=== PATIENT | female | born 1975 | race Caucasian/White ===

== ENCOUNTER 2024-07-09 23:57 | Inpatient (IN) | payer BC ==
[2024-07-10] MEDS: SODIUM CHLORIDE 0.9% 1,000 ML IV ONE (01:17)
--- NOTE | 2024-07-10 01:17 | XR ---
EXAM: XR Right Hand Complete, 3 or More Views CLINICAL HISTORY: ITS.REASON XR Reason: dog bite, worsening infection TECHNIQUE: Frontal, lateral and oblique views of the right hand. COMPARISON: No relevant prior studies available. FINDINGS: Bones/joints: Unremarkable. No acute fracture. No dislocation. Soft tissues: Unremarkable. No radiopaque foreign body. IMPRESSION: Normal right hand x-rays.
[2024-07-10] MEDS: HYDROmorphone 0.5 MG/0.5 ML SYRINGE IVP STA (01:18)
[2024-07-10] MEDS: KETOROLAC 15 MG/ML 1 ML VIAL IVP STA (01:20)
[2024-07-10] MEDS: ONDANSETRON 4 MG/2 ML VIAL IVP STA (01:24)
[2024-07-10 01:49] LABS: ALT 36 U/L (4-34); AST 33 U/L (14-36); African American GFR (CKD) >90 (>60 ml/min/1.73 sqM); Alkaline Phosphatase 83 U/L (38-126); Anion Gap 7 mmol/L; Blood Urea Nitrogen 9 mg/dL (7-17); C Reactive Protein 8.9 mg/dL (<1.0); Calcium 9.1 mg/dL (8.4-10.2); Carbon Dioxide 24 mmol/L (22-30); Chloride 106 mmol/L (98-107); Glucose 96 mg/dL (74-99); Non-African American GFR(CKD) >90 (>60 ml/min/1.73 sqM); Sodium 137 mmol/L (137-145); Total Bilirubin 0.4 mg/dL (0.2-1.3)
[2024-07-10 01:51] LABS: Basophils # (A) 0.1 k/uL (0-0.2); Basophils % (A) 0 %; Eosinophils # (A) 0.1 k/uL (0-0.7); Eosinophils % (A) 1 %; HCT 36.7 % (34.0-46.0); HGB 12.5 gm/dL (11.4-16.0); Lymphocytes # (A) 2.5 k/uL (1.0-4.8); Lymphocytes % (A) 19 %; MCH 31.5 pg (25.0-35.0); MCV 92.5 fL (80.0-100.0); Mean Platelet Volume 7.4; Monocytes # (A) 0.7 k/uL (0-1.0); Monocytes % (A) 5 %; Neutrophils # (A) 9.7 k/uL (1.3-7.7); Neutrophils % (A) 73 %; Platelet Count 340 k/uL (150-450); RBC 3.96 m/uL (3.80-5.40); RDW 12.9 % (11.5-15.5); WBC 13.3 k/uL (3.8-10.6)
[2024-07-10] MEDS: AMPICILLIN-SULBACTAM 3 GM in SODIUM CHLORIDE 0.9% 100 ML IVPB STA (02:00)
[2024-07-10] MEDS ORDERED: NALOXONE 0.4 MG/ML 1 ML VIAL IV PRN (02:47)
[2024-07-10] MEDS ORDERED: ACETAMINOPHEN TAB 325 MG TAB PO PRN (02:47)
--- NOTE | 2024-07-10 02:49 | ED ---
General Adult HPI - General Chief complaint: Extremity Injury, Upper Stated complaint: Dog bite- swelling Time Seen by Provider: 07/10/24 00:15 Source: patient Mode of arrival: ambulatory - History of Present Illness Initial comments: 48-year-old female presenting with chief complaint of pain and swelling to the right hand. Back on Saturday the patient was bitten by her dog while she was grooming him at an urgent care, she was given a tetanus shot and placed on Augmentin. Patient now has significant swelling to the dorsal surface of the hand and has limited range of motion to digits 2 through 5. She is having significant pain redness and warmth as well. No fevers. States that she feels that the lymph nodes in her right axilla are swollen - Related Data Allergies Allergy/AdvReac Type Severity Reaction Status Date / Time morphine Allergy Rash/Hives Verified 07/10/24 00:11 Review of Systems ROS Statement: Those systems with pertinent positive or pertinent negative responses have been documented in the HPI. ROS Other: All systems not noted in ROS Statement are negative. Past Medical History Past Medical History: Hyperlipidemia, Hypertension History of Any Multi-Drug Resistant Organisms: None Reported Past Surgical History: Orthopedic Surgery, Tubal Ligation Past Psychological History: No Psychological Hx Reported Smoking Status: Vaper Past Alcohol Use History: Occasional Past Drug Use History: Marijuana General Exam General appearance: alert, in no apparent distress Head exam: Present: atraumatic, normocephalic, normal inspection Eye exam: Present: normal appearance, EOMI Neck exam: Present: normal inspection. Absent: meningismus Respiratory exam: Absent: respiratory distress Cardiovascular Exam: Present: regular rate Right Hand Wrist exam: Present: tenderness, swelling, erythema. Absent: full ROM Neurological exam: Present: alert, oriented X3 Psychiatric exam: Present: normal affect, normal mood Skin exam: Present: erythema Course Vital Signs 07/10/24 07/10/24 07/10/24 00:09 02:05 03:39 Temperature 98.8 F 98.5 F 97.5 F L Pulse Rate 69 69 74 Respiratory 18 17 17 Rate Blood Pressure 143/74 131/79 122/76 O2 Sat by Pulse 100 96 96 Oximetry Medical Decision Making - Medical Decision Making Was pt. sent in by a medical professional or institution (, PA, C S S REPRESENTATIVE, urgent care, hospital, or shelter...) When possible be specific @ -No Did you speak to anyone other than the patient for history (EMS, parent, family, police, friend...)? What history was obtained from this source @ -No Did you review nursing and triage notes (agree or disagree)? Why? @ -I reviewed and agree with nursing and triage notes Were old charts reviewed (outside hosp., previous admission, EMS record, old EKG, old radiological studies, urgent care reports/EKG's, shelter records)? Report findings @ -No old charts were reviewed Differential Diagnosis (chest pain, altered mental status, abdominal pain women, abdominal pain men, vaginal bleeding, weakness, fever, dyspnea, syncope, headache, dizziness, GI bleed, back pain, seizure, CVA, palpatations, mental health, musculoskeletal)? @ -Differential Musculoskeletal Muscular strain, contusion, ligament sprain, fracture, arthritis, septic arthritis, bursitis, cellulitis, muscle spasm, nerve compression, DVT, arterial occlusion, herpes zoster, electrolyte abnormality, tumor.... This is not meant to be in all inclusive list EKG interpreted by me (3pts min.). @ -As above X-rays interpreted by me (1pt min.). @ -X-ray shows no acute osseous process of the hand CT interpreted by me (1pt min.). @ -None done U/S interpreted by me (1pt. min.). @ -None done What testing was considered but not performed or refused? (CT, X-rays, U/S, labs)? Why? @ -None What meds were considered but not given or refused? Why? @ -None Did you discuss the management of the patient with other professionals (professionals i.e. , PA, C S S REPRESENTATIVE, lab, RT, psych nurse, social service assistant, montessori lead teacher, teacher, surveillance officer, ed case manager)? Give summary @ -My attending spoke with the [facility] provider on-call accepts admission Was smoking cessation discussed for >3mins.? @ -No Was critical care preformed (if so, how long)? @ -No Were there social determinants of health that impacted care today? How? (Homelessness, low income, unemployed, alcoholism, drug addiction, transportation, low edu. Level, literacy, decrease access to med. care, halfway, rehab)? @ -No Was there de-escalation of care discussed even if they declined (Discuss DNR or withdrawal of care, Hospice)? DNR status @ -No What co-morbidities impacted this encounter? (DM, HTN, Smoking, COPD, CAD, Cancer, CVA, ARF, Chemo, Hep., AIDS, mental health diagnosis, sleep apnea, morbid obesity)? @ -None Was patient admitted / discharged? Hospital course, mention meds given and route, prescriptions, significant lab abnormalities, going to OR and other pert inent info. @ -48-year-old female presenting chief complaint of increased pain, redness, swelling to the right hand after dog bite on Saturday. Patient was on Augmentin and had her tetanus updated after the incident. White count 13.3. CRP 8.9. X- ray of the hand shows no acute osseous process. Lactic acid is WNL. Patient will be admitted for dog bite cellulitis to the hand that is failed outpatient treatment. She is started on Unasyn after blood cultures are drawn. Consult is placed to surgeon. Patient is agreeable with this plan. I discussed this case with my attending Dr. Kaufman Undiagnosed new problem with uncertain prognosis? @ -No Drug Therapy requiring intensive monitoring for toxicity (Heparin, Nitro, Insulin, Cardizem)? @ -No Were any procedures done? @ -No Diagnosis/symptom? @ -Dog bite cellulitis to the hand Acute, or Chronic, or Acute on Chronic? @ -Acute Uncomplicated (without systemic symptoms) or Complicated (systemic symptoms)? @ -Complicated Side effects of treatment? @ -No Exacerbation, Progression, or Severe Exacerbation? @ -No Poses a threat to life or bodily function? How? (Chest pain, USA, ID, pneumonia, PE, COPD, DKA, ARF, appy, cholecystitis, CVA, Diverticulitis, Homicidal, Suicidal, threat to staff... and all critical care pts) @ -Yes - Lab Data Result diagrams: 07/10/24 01:11 07/10/24 01:11 Lab Results 07/10/24 07/10/24 07/10/24 Range/Units 01:11 01:11 01:11 WBC 13.3 H (3.8-10.6) k/uL RBC 3.96 (3.80-5.40) m/uL Hgb 12.5 (11.4-16.0) gm/dL Hct 36.7 (34.0-46.0) % MCV 92.5 (80.0-100.0) fL MCH 31.5 (25.0-35.0) pg MCHC 34.0 (31.0-37.0) g/dL RDW 12.9 (11.5-15.5) % Plt Count 340 (150-450) k/uL MPV 7.4 Neutrophils % 73 % Lymphocytes % 19 % Monocytes % 5 % Eosinophils % 1 % Basophils % 0 % Neutrophils # 9.7 H (1.3-7.7) k/uL Lymphocytes # 2.5 (1.0-4.8) k/uL Monocytes # 0.7 (0-1.0) k/uL Eosinophils # 0.1 (0-0.7) k/uL Basophils # 0.1 (0-0.2) k/uL Sodium 137 (137-145) mmol/L Potassium 4.0 (3.5-5.1) mmol/L Chloride 106 (98-107) mmol/L Carbon Dioxide 24 (22-30) mmol/L Anion Gap 7 mmol/L BUN 9 (7-17) mg/dL Creatinine 0.69 (0.52-1.04) mg/dL Est GFR (CKD-EPI)AfAm >90 (>60 ml/min/1.73 sqM) Est GFR (CKD-EPI)NonAf >90 (>60 ml/min/1.73 sqM) Glucose 96 (74-99) mg/dL Plasma Lactic Acid Yaakov 0.7 (0.7-2.0) mmol/L Calcium 9.1 (8.4-10.2) mg/dL Total Bilirubin 0.4 (0.2-1.3) mg/dL AST 33 (14-36) U/L ALT 36 H (4-34) U/L Alkaline Phosphatase 83 (38-126) U/L C-Reactive Protein 8.9 H (<1.0) mg/dL Total Protein 7.0 (6.3-8.2) g/dL Albumin 4.0 (3.5-5.0) g/dL Disposition Clinical Impression: Cellulitis of hand Disposition: ADMITTED IP TO THIS [facility] Condition: Serious Time of Disposition: 02:49
[2024-07-10] MEDS: SODIUM CHLORIDE 0.9% 1,000 ML IV SCH (03:05)
[2024-07-10] MEDS: HYDROmorphone 1 MG/ML 1 ML SYRINGE IVP PRN (03:07)
[2024-07-10] MEDS: KETOROLAC 15 MG/ML 1 ML VIAL IVP PRN (04:28)
[2024-07-10 10:13] LABS: Erythrocyte Sedimentation Rate 27 mm/Hr (0-20)
[2024-07-10] MEDS ORDERED: HYDROcodone/APAP 5-325MG 1 EACH TAB PO PRN (14:02)
[2024-07-10] MEDS: HYDROcodone/APAP 5-325MG 1 EACH TAB PO PRN (15:47)
[2024-07-10] MEDS: AMPICILLIN-SULBACTAM 3 GM in SODIUM CHLORIDE 0.9% 100 ML IVPB SCH (15:48)
[2024-07-10] MEDS: HEPARIN SODIUM,PORCINE 5,000 UNIT/ML 1 ML VIAL SQ SCH (17:02)
--- NOTE | 2024-07-10 22:48 | P.HPIM ---
History of Present Illness H&P Date: 07/10/24 Chief Complaint: Dog bite Patient is a 48-year-old female with known history of hypertension, hyperlipidemia, right ankle surgery, history of vaping and occasional marijuana use. Patient presents to ER with complaints of swelling and pain over the right hand. Patient states that she was bitten by her dog on Saturday and went to [place] urgent care in the evening. Patient was given tetanus shot and was sent home on Augmentin. Patient has been taking medications at home for the pain and swelling went up and getting worse with redness increasing up to elbow. Patient also felt her lymph nodes enlarged in the axillary region. Patient otherwise denied any fever or chills. No cough or sputum production. Any recent illnesses. No recent trauma. Laboratory data showed WBC 13.3 hemoglobin 12.5 and platelets 340 sodium 137 potassium 4.0 chloride 106 bicarb is 24 BUN 9 and creatinine 0.69 and blood sugar 96 CRP 8.9. X-ray of the hand showed normal right hand x-rays. Review of Systems Constitutional: Patient denies any fever or chills . No generalized weakness or weight loss. Abdomen: Patient denied nausea vomiting and diarrhea and abdominal pain. Cardiovascular: Patient denies any chest pain or short of breath no palpitations. Respiratory: patient denied any cough or sputum production. No shortness of breath Neurologic: Patient denied any numbness or tingling. no headache. Musculoskeletal: Patient denies any complaints of joint swelling or deformity. Right hand swelling and pain and difficulty moving her fingers Skin: Negative Psychiatric: Negative Endocrine: No heat or cold intolerance. No recent weight gain. Genitourinary: No dysuria or hematuria. All other 14 point ROS negative except the above Past Medical History Past Medical History: Hyperlipidemia, Hypertension History of Any Multi-Drug Resistant Organisms: None Reported Past Surgical History: Orthopedic Surgery, Tubal Ligation Additional Past Surgical History / Comment(s): 11 screws and plate in right ankle due to tib/fib fracture, oral surgery, top plate dentures and bottom metal plates Past Anesthesia/Blood Transfusion Reactions: Previous Problems w/ Anesthesia Additional Past Anesthesia/Blood Transfusion Reaction / Comment(s): anesthesia wore off quickly and woke up during surgery Past Psychological History: No Psychological Hx Reported Smoking Status: Vaper Past Alcohol Use History: Occasional Past Drug Use History: Marijuana Medications and Allergies Home Medications Medication Instructions Recorded Confirmed Type Amoxic-Pot Clav 875-125Mg 1 tab PO BID 07/10/24 07/10/24 History [Augmentin 875-125] DULoxetine HCL [Cymbalta] 20 mg PO DAILY 07/10/24 07/10/24 History HYDROcodone/APAP 5-325MG [[place] 2 tab PO Q4H PRN 07/10/24 07/10/24 History 5-325] Ibuprofen [Motrin] 800 mg PO Q6H PRN 07/10/24 07/10/24 History Losartan [Cozaar] 50 mg PO BID-W/MEALS 07/10/24 07/10/24 History Omeprazole 20 mg PO DAILY 07/10/24 07/10/24 History Rosuvastatin [Crestor] 10 mg PO HS 07/10/24 07/10/24 History carvediloL [Coreg] 3.125 mg PO BID-W/MEALS 07/10/24 07/10/24 History Allergies Allergy/AdvReac Type Severity Reaction Status Date / Time bee venom protein (honey bee) Allergy Anaphylaxis Verified 07/10/24 11:24 morphine Allergy Rash/Hives Verified 07/10/24 11:24 Physical Exam Vitals: Vital Signs Temp Pulse Pulse Resp BP BP Pulse Ox 07/10/24 07:00 97.7 F 73 16 124/74 99 07/10/24 04:30 18 07/10/24 03:52 97.0 F L 60 18 136/53 100 07/10/24 03:39 97.5 F L 74 17 122/76 96 07/10/24 02:05 98.5 F 69 17 131/79 96 07/10/24 00:09 98.8 F 69 18 143/74 100 Intake and Output 07/09/24 07/10/24 07/10/24 22:59 06:59 14:59 Intake Total 240 Balance 240 Intake: Oral 240 Other: Voiding Method Toilet # Voids 1 Weight 77.111 kg PHYSICAL EXAMINATION: Patient is lying in the bed comfortably, no acute distress, awake alert and oriented.. HEENT: Normocephalic. Neck is supple. Pupils reactive. Nostrils clear. Oral cavity is moist. Neck reveals no JVD, carotid bruits, or thyromegaly. CHEST EXAMINATION: Trachea is central. Symmetrical expansion. Lung haji clear to auscultation and percussion. CARDIAC: Normal S1, S2 with no gallops. No murmurs ABDOMEN: Soft. Bowel sounds normal. No organomegaly. No abdominal bruits. Extremities: reveal no edema. No clubbing or cyanosis.Patient has significant swelling over the dorsal surface of the hand with limited range of motion of the digits 2nd-5th tender to touch and warm. Neurologically awake, alert, oriented x3 with well-coordinated movements. No focal deficits noted Skin: No rash or skin lesions. Psychiatric: Coperative. Nonsuicidal Musculoskeletal: No joint swelling or deformity. Normal range of motion. Results CBC & Chem 7: 07/10/24 01:11 07/10/24 01:11 Labs: Abnormal Lab Results - Last 24 Hours (Table) 07/10/24 07/10/24 Range/Units 01:11 01:11 WBC 13.3 H (3.8-10.6) k/uL Neutrophils # 9.7 H (1.3-7.7) k/uL ESR 27 H (0-20) mm/Hr ALT 36 H (4-34) U/L C-Reactive Protein 8.9 H (<1.0) mg/dL Thrombosis Risk Factor Assmnt - Choose All That Apply Any of the Below Risk Factors Present?: Yes Each Factor Represents 1 point: Age 41-60 years, Obesity (BMI >25) Other Risk Factors: No Other congenital or acquired thrombophilia - If yes, enter type in comment: No Thrombosis Risk Factor Assessment Total Risk Factor Score: 2 Thrombosis Risk Factor Assessment Level: Low Risk Assessment and Plan Assessment: Dog bite with cellulitis of the dorsum of the hand extending up to the elbow with decreased range of motion. Failed outpatient antibiotic therapy with Augmentin Hypertension Hyperlipidemia Vaping and occasional marijuana use DVT prophylaxis with heparin subcu GI prophylaxis Pepcid Plan: Patient will be continued on antibiotics on home of Unasyn and follow-up wound culture report. Hand surgery service was consulted. Continue with pain management and home medications and follow-up closely. Time with Patient: Greater than 30
[2024-07-11] MEDS: PANTOPRAZOLE 40 MG TABLET PO SCH (08:54)
[2024-07-11 09:40] LABS: BUN/Creat Ratio 13.29 Ratio (12.00-20.00); Blood Urea Nitrogen 9.3 mg/dL (9.0-27.0); Carbon Dioxide 24.8 mmol/L (21.6-31.8); Chloride 106 mmol/L (96-109); Glucose 93 mg/dL (70-110); Potassium 4.1 mmol/L (3.5-5.5); Sodium 142 mmol/L (135-145)
[2024-07-11 09:42] LABS: Basophils # (A) 0.04 X 10*3/uL (0.00-0.10); Basophils % (A) 0.4 %; Eosinophils # (A) 0.18 X 10*3/uL (0.04-0.35); Eosinophils % (A) 1.9 %; HCT 36.3 % (37.2-46.3); HGB 11.8 g/dL (12.0-15.0); Lymphocytes # (A) 2.35 X 10*3/uL (0.90-5.00); Lymphocytes % (A) 24.6 %; MCH 30.2 pg (27.0-32.0); MCHC 32.5 g/dL (32.0-37.0); MCV 92.8 FL (80.0-97.0); Mean Platelet Volume 9.6 FL (9.5-12.2); Monocytes # (A) 0.69 X 10*3/uL (0.20-1.00); Monocytes % (A) 7.2 %; NRBC Per 100 WBC 0 X 10*3/uL (0.00-0.01); Neutrophils # (A) 6.27 X 10*3/uL (1.80-7.70); Neutrophils % (A) 65.7 %; Platelet Count 327 X 10*3/uL (140-440); RBC 3.91 X 10*6/uL (4.10-5.20); RDW 13.2 % (11.5-14.5); WBC 9.55 X 10*3/uL (4.50-10.00)
[2024-07-11] MEDS: ONDANSETRON 4 MG/2 ML VIAL IVP PRN (12:56)
--- NOTE | 2024-07-11 13:50 | P.CNOR ---
History of Present Illness - HPI Consult date: 07/10/24 Consult reason: other History of present illness: She states that she was Bit by a dog two days ago. She developed Increased pain and swelling at right hand. She went to Urgent care where she was given tetanus and oral antibiotics. It had progressed and was Admitted yesterday through ED. She feels that it is improved today some after one dose of Unasyn. She has No numbness and no fever Review of Systems All systems: negative Constitutional: Denies chills, Denies fever Eyes: denies blurred vision, denies pain Ears, nose, mouth and throat: Denies headache, Denies sore throat Cardiovascular: Denies chest pain, Denies shortness of breath Respiratory: Denies cough Gastrointestinal: Denies abdominal pain, Denies diarrhea, Denies nausea, Denies vomiting Genitourinary: Denies dysuria, Denies hematuria Musculoskeletal: Denies myalgias Integumentary: Denies pruritus, Denies rash Neurological: Denies numbness, Denies weakness Psychiatric: Denies anxiety, Denies depression Endocrine: Denies fatigue, Denies weight change Past Medical History Past Medical History: Hyperlipidemia, Hypertension History of Any Multi-Drug Resistant Organisms: None Reported Past Surgical History: Orthopedic Surgery, Tubal Ligation Additional Past Surgical History / Comment(s): 11 screws and plate in right ankle due to tib/fib fracture, oral surgery, top plate dentures and bottom metal plates Past Anesthesia/Blood Transfusion Reactions: Previous Problems w/ Anesthesia Additional Past Anesthesia/Blood Transfusion Reaction / Comm: anesthesia wore off quickly and woke up during surgery Past Psychological History: No Psychological Hx Reported Smoking Status: Vaper Past Alcohol Use History: Occasional Past Drug Use History: Marijuana Medications and Allergies Home Medications Medication Instructions Recorded Confirmed Type Amoxic-Pot Clav 875-125Mg 1 tab PO BID 07/10/24 07/10/24 History [Augmentin 875-125] DULoxetine HCL [Cymbalta] 20 mg PO DAILY 07/10/24 07/10/24 History HYDROcodone/APAP 5-325MG [[place] 2 tab PO Q4H PRN 07/10/24 07/10/24 History 5-325] Ibuprofen [Motrin] 800 mg PO Q6H PRN 07/10/24 07/10/24 History Losartan [Cozaar] 50 mg PO BID-W/MEALS 07/10/24 07/10/24 History Omeprazole 20 mg PO DAILY 07/10/24 07/10/24 History Rosuvastatin [Crestor] 10 mg PO HS 07/10/24 07/10/24 History carvediloL [Coreg] 3.125 mg PO BID-W/MEALS 07/10/24 07/10/24 History Allergies Allergy/AdvReac Type Severity Reaction Status Date / Time bee venom protein (honey bee) Allergy Anaphylaxis Verified 07/10/24 11:24 morphine Allergy Rash/Hives Verified 07/10/24 11:24 Physical Examination There is diffuse edema to the right hand. There are a few small blisters/puncture wounds on both surfaces of hand and digits. There is Mild erythema about the hand but not progressed proximally. Motor and sensation is intact in all digits and hand. ROM is limited due to swelling and pain. Less than 2 sec cap refill is present Results - Labs Labs: Abnormal Lab Results - Last 24 Hours (Table) 07/10/24 07/10/24 Range/Units 01:11 01:11 WBC 13.3 H (3.8-10.6) k/uL Neutrophils # 9.7 H (1.3-7.7) k/uL ESR 27 H (0-20) mm/Hr ALT 36 H (4-34) U/L C-Reactive Protein 8.9 H (<1.0) mg/dL Microbiology - Last 24 Hours (Table) 07/10/24 04:03 Gram Stain - Preliminary Hand - Right H & H 07/10/24 Range/Units 01:11 Hgb 12.5 (11.4-16.0) gm/dL Hct 36.7 (34.0-46.0) % Result Diagrams: 07/11/24 04:24 07/11/24 04:24 - Diagnostic results Wrist/Hand x-ray: report reviewed, image reviewed Assessment and Plan (1) Cellulitis of hand Narrative/Plan: we will Restart Unasyn. Continue with pain management, elevate hand/extremity, warm soapy soaks 20 mins several times per day. We will Monitor closely. Current Visit: Yes Status: Acute Priority: Medium Code(s): L03.119 - CELLULITIS OF UNSPECIFIED PART OF LIMB SNOMED Code(s): 60280329 (2) Dog bite Current Visit: Yes Status: Acute Priority: Medium Code(s): W54.0XXA - BITTEN BY DOG, INITIAL ENCOUNTER SNOMED Code(s): 691857370 Time with Patient: Less than 30
--- NOTE | 2024-07-11 13:57 | P.PN ---
Subjective Progress Note Date: 07/11/24 Principal diagnosis: Right hand dog bite, cellulitis She is seen at bedside today regarding her right hand. She doesn't feel much improved. She has no new complaints. She denies numbness or fevers. Objective - Vital Signs Vital signs: Vital Signs Temp 97.9 F 07/11/24 07:00 Pulse 67 07/11/24 09:44 Resp 14 07/11/24 09:44 BP 123/69 07/11/24 07:00 Pulse Ox 97 07/11/24 07:00 FiO2 Intake & Output 07/10/24 07/11/24 07/11/24 18:59 06:59 18:59 Intake Total 480 Balance 480 Intake: Oral 480 Other: Voiding Method Toilet Toilet # Voids 2 3 - Exam There is diffuse edema to right hand. No progressive erythema. There is some minimal drainage of a puncture wound at dorsum of right hand. There is no bleeding. Motor and sensation is intact in hand and digits. ROM limited due to pain swelling. less than 2 sec cap refill in all digits. - Constitutional General appearance: Present: no acute distress - Labs CBC & Chem 7: 07/11/24 04:24 07/11/24 04:24 Labs: Abnormal Lab Results - Last 24 Hours (Table) 07/11/24 Range/Units 04:24 RBC 3.91 L (4.10-5.20) X 10*6/uL Hgb 11.8 L (12.0-15.0) g/dL Hct 36.3 L (37.2-46.3) % Microbiology - Last 24 Hours (Table) 07/10/24 00:55 Blood Culture - Preliminary Blood 07/10/24 04:03 Gram Stain - Preliminary Hand - Right Wound Culture - Preliminary Assessment and Plan (1) Cellulitis of hand Narrative/Plan: She is afebrile and WBC is improved. Cultures pending. She will continue Unasyn. Continue with pain management, elevate hand/extremity, warm soapy soaks 20 mins several times per day. She will be NPO after midnight and we will consider [facility] er bedside I and D vs OR if no improvement tomorrow. We will Monitor closely. Current Visit: Yes Status: Acute Priority: Medium Code(s): L03.119 - CELLULITIS OF UNSPECIFIED PART OF LIMB SNOMED Code(s): 42581246 (2) Dog bite Current Visit: Yes Status: Acute Priority: Medium Code(s): W54.0XXA - BITTEN BY DOG, INITIAL ENCOUNTER SNOMED Code(s): 964092045 Time with Patient: Less than 30
--- NOTE | 2024-07-11 14:47 | P.PN ---
Subjective Progress Note Date: 07/11/24 Patient is a 48-year-old female with known history of hypertension, hyperlipidemia, right ankle surgery, history of vaping and occasional marijuana use. Patient presents to ER with complaints of swelling and pain over the right hand. Patient states that she was bitten by her dog on Saturday and went to [facility] urgent care in the evening. Patient was given tetanus shot and was sent home on Augmentin. Patient has been taking medications at home for the pain and swelling went up and getting worse with redness increasing up to elbow. Patient also felt her lymph nodes enlarged in the axillary region. Patient otherwise denied any fever or chills. No cough or sputum production. Any recent illnesses. No recent trauma. Laboratory data showed WBC 13.3 hemoglobin 12.5 and platelets 340 sodium 137 p otassium 4.0 chloride 106 bicarb is 24 BUN 9 and creatinine 0.69 and blood sugar 96 CRP 8.9. X-ray of the hand showed normal right hand x-rays. 07/11. Patient seen and examined. Orthopedic evaluating, recommend creation of IV antibiotic, possible I&D tomorrow if not improvement. Still has swelling of right hand REVIEW OF SYSTEMS: CONSTITUTIONAL: No fever, no malaise,. CARDIOVASCULAR: No chest pain, no palpitations, no syncope. PULMONARY: No shortness of breath, no cough, GASTROINTESTINAL: No diarrhea, no nausea, no vomiting, no abdominal pain. NEUROLOGICAL: No headaches, no weakness, PHYSICAL EXAMINATION: GENERAL: The patient is alert and oriented x3, not in any acute distress. Well developed, well nourished. HEENT: Pupils are round and equally reacting to light. EOMI. No scleral icterus. No conjunctival pallor. Normocephalic, atraumatic. No pharyngeal erythema. No thyromegaly. CARDIOVASCULAR: S1 and S2 present. No murmurs, rubs, or gallops. PULMONARY: Chest is clear to auscultation, no wheezing or crackles. ABDOMEN: Soft, nontender, nondistended, normoactive bowel sounds. No palpable organomegaly. MUSCULOSKELETAL: Right hand swelling, tenderness EXTREMITIES: No cyanosis, clubbing, or pedal edema. NEUROLOGICAL: Gross neurological examination did not reveal any focal deficits. SKIN: No rashes. Assessment and plan Dog bite with cellulitis of the dorsum of the hand extending up to the elbow with decreased range of motion. Failed outpatient antibiotic therapy with Augmentin Hypertension Hyperlipidemia Vaping and occasional marijuana use Monitor vital signs Monitor CBC Monitor CMP Continue wound care Continue IV Unasyn Continue IV fluids Continue pain management ID following Ortho following, planning I&D if no improvement by tomorrow. Labs and medication were reviewed.. Continue same treatment. Continue with symptomatic treatment. Resume home medication. Monitor labs and vitals. DVT and GI prophylaxis. Further recommendations as per clinical course of the patient Dictation was produced using [employer] dictation software. please excuse any grammatical, word or spelling errors. Objective - Vital Signs Vital signs: Vital Signs Temp 98.2 F 07/11/24 14:03 Pulse 63 07/11/24 14:03 Resp 15 07/11/24 14:03 BP 176/78 07/11/24 14:03 Pulse Ox 97 07/11/24 14:03 FiO2 Intake & Output 07/10/24 07/11/24 07/11/24 18:59 06:59 18:59 Intake Total 480 Balance 480 Intake: Oral 480 Other: Voiding Method Toilet Toilet # Voids 2 3 3 - Labs CBC & Chem 7: 07/11/24 04:24 07/11/24 04:24 Labs: Abnormal Lab Results - Last 24 Hours (Table) 07/11/24 Range/Units 04:24 RBC 3.91 L (4.10-5.20) X 10*6/uL Hgb 11.8 L (12.0-15.0) g/dL Hct 36.3 L (37.2-46.3) % Microbiology - Last 24 Hours (Table) 07/10/24 00:55 Blood Culture - Preliminary Blood 07/10/24 04:03 Gram Stain - Preliminary Hand - Right Wound Culture - Preliminary
[2024-07-11] MEDS: IBUPROFEN 400 MG TAB PO PRN (16:45)
[2024-07-11] MEDS: carvediloL 3.125 MG TAB PO SCH (18:03)
[2024-07-11] MEDS: LOSARTAN 50 MG TAB PO SCH (18:03)
[2024-07-11] MEDS: DULoxetine HCL 20 MG CAPSULE.DR PO SCH (18:23)
[2024-07-11] MEDS: ATORVASTATIN 20 MG TAB PO SCH (20:00)
--- NOTE | 2024-07-12 09:39 | P.CONS ---
History of Present Illness - Reason for Consult Consult date: 07/11/24 Right hand dog bite cellulitis Requesting physician: Santiago Cheema - Chief Complaint Right hand swelling and redness x few days - History of Present Illness Patient is a 48-year-old female with a past medical history difficult for hypertension hyperlipidemia apparently the patient was bitten by her pet dog while she was trying to cut her nails it happened on Saturday that is about 4 days before presentation to the hospital patient went to the urgent care the patient was started on Augmentin however the patient now presenting to the ER concerning for increasing swelling and redness on the dorsum aspect of the right hand and did have a limited motion to the right second finger patient complaining of pain describing the pain to be sharp moderate to severe intensity without any radiation with associated swelling and redness and no foul-smelling drainage on presentation to the hospital patient was afebrile and no fever have been called subsequently patient was not tachycardic hypotensive or hypoxic patient did have white count of 13.3 with a left shift creatinine 0.6, Electrolytes have been normal liver enzymes normal blood cultures obtained which are currently pending patient did have a x-ray of the hand did not show any bony abnormality patient was started on Unasyn infectious disease was consulted today for the right hand infected dog bite cellulitis Review of Systems Positive point and negatives has been mentioned in the HPI, complete review of systems was performed and all other systems are negative Past Medical History Past Medical History: Hyperlipidemia, Hypertension History of Any Multi-Drug Resistant Organisms: None Reported Past Surgical History: Orthopedic Surgery, Tubal Ligation Additional Past Surgical History / Comment(s): 11 screws and plate in right ankle due to tib/fib fracture, oral surgery, top plate dentures and bottom metal plates Past Anesthesia/Blood Transfusion Reactions: Previous Problems w/ Anesthesia Additional Past Anesthesia/Blood Transfusion Reaction / Comm: anesthesia wore off quickly and woke up during surgery Past Psychological History: No Psychological Hx Reported Smoking Status: Vaper Past Alcohol Use History: Occasional Past Drug Use History: Marijuana Medications and Allergies Home Medications Medication Instructions Recorded Confirmed Type Amoxic-Pot Clav 875-125Mg 1 tab PO BID 07/10/24 07/10/24 History [Augmentin 875-125] DULoxetine HCL [Cymbalta] 20 mg PO DAILY 07/10/24 07/10/24 History HYDROcodone/APAP 5-325MG [[place] 2 tab PO Q4H PRN 07/10/24 07/10/24 History 5-325] Ibuprofen [Motrin] 800 mg PO Q6H PRN 07/10/24 07/10/24 History Losartan [Cozaar] 50 mg PO BID-W/MEALS 07/10/24 07/10/24 History Omeprazole 20 mg PO DAILY 07/10/24 07/10/24 History Rosuvastatin [Crestor] 10 mg PO HS 07/10/24 07/10/24 History carvediloL [Coreg] 3.125 mg PO BID-W/MEALS 07/10/24 07/10/24 History Allergies Allergy/AdvReac Type Severity Reaction Status Date / Time bee venom protein (honey bee) Allergy Anaphylaxis Verified 07/10/24 11:24 morphine Allergy Rash/Hives Verified 07/10/24 11:24 Physical Exam Vitals: Vital Signs Temp Pulse Resp BP Pulse Ox 07/11/24 09:44 67 14 07/11/24 07:00 97.9 F 67 14 123/69 97 07/11/24 02:00 98.1 F 60 16 135/79 98 07/10/24 20:00 98.5 F 61 16 130/53 97 07/10/24 14:13 98.4 F 69 16 132/80 98 Intake and Output 07/10/24 07/11/24 07/11/24 22:59 06:59 14:59 Intake Total 480 Balance 480 Intake: Oral 480 Other: Voiding Method Toilet Toilet Toilet # Voids 1 3 GENERAL DESCRIPTION: Middle-aged female lying in bed, no distress. No tachypnea or accessory muscle of respiration use. HEENT: Shows Pallor , no scleral icterus. Oral mucous membrane is dry. No pharyngeal erythema or thrush NECK: Trachea central, no thyromegaly. LUNGS: Unlabored breathing. Clear to auscultation anteriorly. No wheeze or crac kle. HEART: S1, S2, regular rate and rhythm. No loud murmur ABDOMEN: Soft, no tenderness , guarding or rigidity, no organomegaly EXTREMITIES: Right hand dorsum did have diffuse swelling and redness which is warm and tender to touch SKIN: No rash, no masses palpable. NEUROLOGICAL: The patient is awake, alert, oriented x3, mood and affect normal. Results CBC & Chem 7: 07/11/24 04:24 07/11/24 04:24 Labs: Abnormal Lab Results - Last 24 Hours (Table) 07/11/24 Range/Units 04:24 RBC 3.91 L (4.10-5.20) X 10*6/uL Hgb 11.8 L (12.0-15.0) g/dL Hct 36.3 L (37.2-46.3) % Microbiology - Last 24 Hours (Table) 07/10/24 04:03 Gram Stain - Preliminary Hand - Right Wound Culture - Preliminary Assessment and Plan (1) Cellulitis of hand Current Visit: Yes Status: Acute Priority: Medium Code(s): L03.119 - CELLULITIS OF UNSPECIFIED PART OF LIMB SNOMED Code(s): 79321285 (2) Dog bite Current Visit: Yes Status: Acute Priority: Medium Code(s): W54.0XXA - BITTEN BY DOG, INITIAL ENCOUNTER SNOMED Code(s): 237078965 (3) Failure of outpatient treatment Current Visit: Yes Status: Acute Code(s): Z78.9 - OTHER SPECIFIED HEALTH STATUS SNOMED Code(s): 683780198 Plan: 1patient with right hand pain swelling redness started after the dog bite failing outpatient oral Augmentin therapy likely from the burden of disease and will need to cover for the polymicrobial oral glendy of the dog x-ray did not show any bony changes. 2Unasyn 3 g every 6 hours should provide adequate antibiotic coverage. 3patient advised to keep the hand elevated and ice it that would cut down on inflammation. Multiple questions concerns were answered. We will follow on clinical condition and cultures to further adjust medication if needed Thank you for this consultation we will follow the patient along with you Dictation was produced using [employer] dictation software. please excuse any grammatical, word or spelling errors. Time with Patient: Greater than 30
--- NOTE | 2024-07-12 13:18 | P.PN ---
Subjective Progress Note Date: 07/12/24 Patient is a 48-year-old female with known history of hypertension, hyperlipidemia, right ankle surgery, history of vaping and occasional marijuana use. Patient presents to ER with complaints of swelling and pain over the right hand. Patient states that she was bitten by her dog on Saturday and went to [facility] in the evening. Patient was given tetanus shot and was sent home on Augmentin. Patient has been taking medications at home for the pain and swelling went up and getting worse with redness increasing up to elbow. Patient also felt her lymph nodes enlarged in the axillary region. Patient otherwise denied any fever or chills. No cough or sputum production. Any recent illnesses. No recent trauma. Laboratory data showed WBC 13.3 hemoglobin 12.5 and platelets 340 sodium 137 p otassium 4.0 chloride 106 bicarb is 24 BUN 9 and creatinine 0.69 and blood sugar 96 CRP 8.9. X-ray of the hand showed normal right hand x-rays. 07/11. Patient seen and examined. Orthopedic evaluating, recommend creation of IV antibiotic, possible I&D tomorrow if not improvement. Still has swelling of right hand 07/12. Patient seen and examined. States right hand swelling has slightly improved compared to yesterday. Less painful compared to yesterday. REVIEW OF SYSTEMS: CONSTITUTIONAL: No fever, no malaise,. CARDIOVASCULAR: No chest pain, no palpitations, no syncope. PULMONARY: No shortness of breath, no cough, GASTROINTESTINAL: No diarrhea, no nausea, no vomiting, no abdominal pain. NEUROLOGICAL: No headaches, no weakness, PHYSICAL EXAMINATION: GENERAL: The patient is alert and oriented x3, not in any acute distress. Well developed, well nourished. HEENT: Pupils are round and equally reacting to light. EOMI. No scleral icterus. No conjunctival pallor. Normocephalic, atraumatic. No pharyngeal erythema. No thyromegaly. CARDIOVASCULAR: S1 and S2 present. No murmurs, rubs, or gallops. PULMONARY: Chest is clear to auscultation, no wheezing or crackles. ABDOMEN: Soft, nontender, nondistended, normoactive bowel sounds. No palpable organomegaly. MUSCULOSKELETAL: Right hand swelling, tenderness improved EXTREMITIES: No cyanosis, clubbing, or pedal edema. NEUROLOGICAL: Gross neurological examination did not reveal any focal deficits. SKIN: No rashes. Assessment and plan Dog bite with cellulitis of the dorsum of the hand extending up to the elbow with decreased range of motion. Failed outpatient antibiotic therapy with Augmentin Hypertension Hyperlipidemia Vaping and occasional marijuana use Monitor vital signs Monitor CBC Monitor CMP Continue wound care Continue IV Unasyn Continue IV fluids Continue pain management ID following Ortho following Labs and medication were reviewed.. Continue same treatment. Continue with symptomatic treatment. Resume home medication. Monitor labs and vitals. DVT and GI prophylaxis. Further recommendations as per clinical course of the patient Dictation was produced using [employer] dictation software. please excuse any grammatical, word or spelling errors. Objective - Vital Signs Vital signs: Vital Signs Temp 98.3 F 07/12/24 07:00 Pulse 78 07/12/24 07:00 Resp 16 07/12/24 08:00 BP 124/76 07/12/24 07:00 Pulse Ox 96 07/12/24 07:00 FiO2 Intake & Output 07/11/24 07/12/24 07/12/24 18:59 06:59 18:59 Other: Voiding Method Toilet Toilet Toilet # Voids 3 2 - Labs CBC & Chem 7: 07/11/24 04:24 07/11/24 04:24 Labs: Microbiology - Last 24 Hours (Table) 07/10/24 00:55 Blood Culture - Preliminary Blood 07/10/24 04:03 Gram Stain - Final Hand - Right Wound Culture - Final
[2024-07-12] MEDS ORDERED: ONDANSETRON 4 MG/2 ML VIAL IVP PRN (13:40)
--- NOTE | 2024-07-12 13:54 | P.PN ---
Subjective Progress Note Date: 07/12/24 Principal diagnosis: Reason for follow-up is right hand dog bite cellulitis Patient is a 48-year-old female with a past medical history difficult for hypertension hyperlipidemia apparently the patient was bitten by her pet dog while she was trying to cut her nails subsequently presented to hospital with worsening swelling redness to the dorsum of the right hand concerning for dog bite cellulitis. On today's evaluation that is 07/12/2024, Patient is afebrile patient is currently on room air and denies having any shortness of breath, the patient denies any chest pain or cough, the patient denies any nausea vomiting did not have any abdominal pain and no diarrhea, the patient right hand swelling has slightly decreased has been complaining of mostly headache today. No new lab has been obtained today cultures are currently pending Objective - Vital Signs Vital signs: Vital Signs Temp 98.3 F 07/12/24 07:00 Pulse 78 07/12/24 07:00 Resp 16 07/12/24 08:00 BP 124/76 07/12/24 07:00 Pulse Ox 96 07/12/24 07:00 FiO2 Intake & Output 07/11/24 07/12/24 07/12/24 18:59 06:59 18:59 Other: Voiding Method Toilet Toilet Toilet # Voids 3 2 - Exam GENERAL DESCRIPTION: Middle-age female lying in bed in no distress RESPIRATORY SYSTEM: Unlabored breathing , decreased breath sounds at bases HEART: S1 S2 regular rate and rhythm , ABDOMEN: Soft , no tenderness EXTREMITIES: Right hand dorsum swelling redness slightly decreased - Labs CBC & Chem 7: 07/11/24 04:24 07/11/24 04:24 Labs: Microbiology - Last 24 Hours (Table) 07/10/24 00:55 Blood Culture - Preliminary Blood 07/10/24 04:03 Gram Stain - Final Hand - Right Wound Culture - Final Assessment and Plan (1) Cellulitis of hand Current Visit: Yes Status: Acute Priority: Medium Code(s): L03.119 - CELLULITIS OF UNSPECIFIED PART OF LIMB SNOMED Code(s): 75600784 (2) Dog bite Current Visit: Yes Status: Acute Priority: Medium Code(s): W54.0XXA - BITTEN BY DOG, INITIAL ENCOUNTER SNOMED Code(s): 443202705 (3) Failure of outpatient treatment Current Visit: Yes Status: Acute Code(s): Z78.9 - OTHER SPECIFIED HEALTH STATUS SNOMED Code(s): 917657409 Plan: 1patient with right hand pain swelling redness started after the dog bite failing outpatient oral Augmentin therapy likely from the burden of disease and will need to cover for the polymicrobial oral glendy of the dog x-ray did not show any bony changes. 2patient did have a some improvement to the right hand swelling and redness 3plan is to treat with IV Unasyn further 24 to 48 hours before transition to oral Dictation was produced using [employer] dictation software. please excuse any grammatical, word or spelling errors. Time with Patient: Less than 30
--- NOTE | 2024-07-12 14:29 | P.PN ---
Subjective Progress Note Date: 07/12/24 Principal diagnosis: Right hand dog bite, cellulitis She is seen at bedside today regarding her right hand. She feels improved today with swelling, redness and pain. She has no new complaints. She denies numbness or fevers. Objective - Vital Signs Vital signs: Vital Signs Temp 98.3 F 07/12/24 07:00 Pulse 78 07/12/24 07:00 Resp 16 07/12/24 08:00 BP 124/76 07/12/24 07:00 Pulse Ox 96 07/12/24 07:00 FiO2 Intake & Output 07/11/24 07/12/24 07/12/24 18:59 06:59 18:59 Intake Total 118 Balance 118 Intake: Oral 118 Other: Voiding Method Toilet Toilet Toilet # Voids 3 2 - Exam There is improved erythema and edema to right hand. No progressive erythema. Mild tenderness. Not hot. There is some minimal drainage of a puncture wound at dorsum of right hand. There is no bleeding. Motor and sensation is intact in hand and digits. ROM limited due to pain swelling but improved. less than 2 sec cap refill in all digits. - Constitutional General appearance: Present: no acute distress - Labs CBC & Chem 7: 07/11/24 04:24 07/11/24 04:24 Labs: Microbiology - Last 24 Hours (Table) 07/10/24 04:03 Anaerobic Culture - Preliminary Hand - Right 07/10/24 00:55 Blood Culture - Preliminary Blood 07/10/24 04:03 Gram Stain - Final Hand - Right Wound Culture - Final Assessment and Plan (1) Cellulitis of hand Narrative/Plan: She is afebrile and WBC is improved. Cultures negative thus far. She will continue Unasyn. Continue with pain management, elevate hand/extremity, warm soapy soaks 20 mins several times per day. She is improving but will be NPO after midnight again should intervention be needed tomorrow We will Monitor closely. Current Visit: Yes Status: Acute Priority: Medium Code(s): L03.119 - CELLULITIS OF UNSPECIFIED PART OF LIMB SNOMED Code(s): 97074617 (2) Dog bite Current Visit: Yes Status: Acute Priority: Medium Code(s): W54.0XXA - BITTEN BY DOG, INITIAL ENCOUNTER SNOMED Code(s): 987692113
[2024-07-12] MEDS: IBUPROFEN 600 MG TAB PO PRN (17:51)
[2024-07-13 05:42] LABS: Basophils % (A) 1 %; Eosinophils # (A) 0.2 k/uL (0-0.7); Eosinophils % (A) 3 %; HCT 35.7 % (34.0-46.0); HGB 11.5 gm/dL (11.4-16.0); Hypochromasia Slight; Lymphocytes # (A) 1.6 k/uL (1.0-4.8); Lymphocytes % (A) 23 %; MCH 30.7 pg (25.0-35.0); MCHC 32.3 g/dL (31.0-37.0); MCV 95.1 fL (80.0-100.0); Mean Platelet Volume 6.8; Monocytes # (A) 0.4 k/uL (0-1.0); Monocytes % (A) 6 %; Neutrophils # (A) 4.5 k/uL (1.3-7.7); Neutrophils % (A) 64 %; Platelet Count 333 k/uL (150-450); RBC 3.75 m/uL (3.80-5.40); RDW 12.7 % (11.5-15.5); WBC 6.9 k/uL (3.8-10.6)
[2024-07-13 05:49] LABS: ALT 26 U/L (4-34); AST 24 U/L (14-36); African American GFR (CKD) >90 (>60 ml/min/1.73 sqM); Albumin 3.2 g/dL (3.5-5.0); Albumin/Globulin Ratio 1.2; Alkaline Phosphatase 62 U/L (38-126); Anion Gap 9 mmol/L; Blood Urea Nitrogen 7 mg/dL (7-17); Calcium 8.8 mg/dL (8.4-10.2); Carbon Dioxide 22 mmol/L (22-30); Chloride 110 mmol/L (98-107); Globulin 2.7 g/dL; Glucose 97 mg/dL (74-99); Non-African American GFR(CKD) >90 (>60 ml/min/1.73 sqM); Potassium 3.9 mmol/L (3.5-5.1); Sodium 141 mmol/L (137-145); Total Bilirubin 0.2 mg/dL (0.2-1.3); Total Protein 5.9 g/dL (6.3-8.2)
--- NOTE | 2024-07-13 13:38 | XR ---
EXAMINATION TYPE: XR hand limited RT DATE OF EXAM: 07/13/2024 1:06 PM COMPARISON: [id number] CLINICAL INDICATION: Female, 48 years old with history of right hand pain, recent dog bite, pain TECHNIQUE: XR hand limited RT 2views were obtained. FINDINGS/IMPRESSION: There is soft tissue swelling involving the third digit. No evidence for radiopa que foreign body. No evidence for fracture. [facility], , 07/13/2024 1:36 PM
[2024-07-13] MEDS: KETOROLAC 15 MG/ML 1 ML VIAL IVP SCH (13:56)
--- NOTE | 2024-07-13 14:57 | P.PN ---
Subjective Progress Note Date: 07/13/24 Principal diagnosis: Right hand dog bite, cellulitis She is seen at bedside today regarding her right hand. She feels improved today with swelling, redness and pain. She has pain mostly at the 3rd digits.She has no new complaints. She denies numbness or fevers. She has been doing soaks and receiving IV antibiotics. Objective - Vital Signs Vital signs: Vital Signs Temp 98.5 F 07/13/24 07:00 Pulse 57 L 07/13/24 07:00 Resp 16 07/13/24 07:00 BP 149/78 07/13/24 07:00 Pulse Ox 100 07/13/24 07:00 FiO2 Intake & Output 07/12/24 07/13/24 07/13/24 18:59 06:59 18:59 Intake Total 456 Balance 456 Intake: Oral 456 Other: Voiding Method Toilet Toilet # Voids 3 - Exam There continues to be improved erythema and edema to right hand. No progressive erythema. Mild tenderness. Not hot. There is no drainage of a puncture wound at dorsum of right hand. There is no bleeding. Motor and sensation is intact in hand and digits. ROM limited due to pain swelling but continues to improve. less than 2 sec cap refill in all digits. - Constitutional General appearance: Present: no acute distress - Labs CBC & Chem 7: 07/13/24 05:01 07/13/24 05:01 Labs: Abnormal Lab Results - Last 24 Hours (Table) 07/13/24 07/13/24 Range/Units 05:01 05:01 RBC 3.75 L (3.80-5.40) m/uL Chloride 110 H (98-107) mmol/L Total Protein 5.9 L (6.3-8.2) g/dL Albumin 3.2 L (3.5-5.0) g/dL Microbiology - Last 24 Hours (Table) 07/10/24 00:55 Blood Culture - Preliminary Blood 07/10/24 04:03 Anaerobic Culture - Preliminary Hand - Right Assessment and Plan (1) Cellulitis of hand Narrative/Plan: She continues to improve. She is afebrile and WBC is improved. Cultures negative thus far. She will continue Unasyn. Continue with pain management, elevate hand/extremity, warm soapy soaks 20 mins several times per day. Will add corticosteroids for tenosynovitis. We will Monitor closely. Current Visit: Yes Status: Acute Priority: Medium Code(s): L03.119 - CELLULITIS OF UNSPECIFIED PART OF LIMB SNOMED Code(s): 84941263 (2) Dog bite Current Visit: Yes Status: Acute Priority: Medium Code(s): W54.0XXA - BITTEN BY DOG, INITIAL ENCOUNTER SNOMED Code(s): 276850484 Time with Patient: Less than 30
--- NOTE | 2024-07-13 15:01 | P.PN ---
Subjective Progress Note Date: 07/13/24 Patient is a 48-year-old female with known history of hypertension, hyperlipidemia, right ankle surgery, history of vaping and occasional marijuana use. Patient presents to ER with complaints of swelling and pain over the right hand. Patient states that she was bitten by her dog on Saturday and went to [place] urgent care in the evening. Patient was given tetanus shot and was sent home on Augmentin. Patient has been taking medications at home for the pain and swelling went up and getting worse with redness increasing up to elbow. Patient also felt her lymph nodes enlarged in the axillary region. Patient otherwise denied any fever or chills. No cough or sputum production. Any recent illnesses. No recent trauma. Laboratory data showed WBC 13.3 hemoglobin 12.5 and platelets 340 sodium 137 potassium 4.0 chloride 106 bicarb is 24 BUN 9 and creatinine 0.69 and blood sugar 96 CRP 8.9. X-ray of the hand showed normal right hand x-rays. 07/11. Patient seen and examined. Orthopedic evaluating, recommend creation of IV antibiotic, possible I&D tomorrow if not improvement. Still has swelling of right hand 07/12. Patient seen and examined. States right hand swelling has slightly impro kassie compared to yesterday. Less painful compared to yesterday. 07/13/2024 Patient is seen and evaluated in follow-up today with orthopedics along with infectious disease following. Patient is maintained on Unasyn and will continue and cultures thus far are negative. Patient swelling has gone down although patient continues to report significant pain in that right middle finger and unable to bend. Will obtain repeat x-ray as the swelling has gone down somewhat to further evaluate if there are any fractures. Patient is afebrile and white count has normalized and patient reports some improvement. Patient is continuing with soaks 3 times daily with cleansing along with elevating the right upper extremity while at rest. Will continue with current pain regimen and follow-up on repeat labs. Orthopedics evaluating for possible need for I&D. REVIEW OF SYSTEMS: CONSTITUTIONAL: No fever, no malaise,. CARDIOVASCULAR: No chest pain, no palpitations, no syncope. PULMONARY: No shortness of breath, no cough, GASTROINTESTINAL: No diarrhea, no nausea, no vomiting, no abdominal pain. NEUROLOGICAL: No headaches, no weakness, reporting continued right hand pain and swelling with inability to bend of the right middle finger PHYSICAL EXAMINATION: GENERAL: The patient is alert and oriented x3, not in any acute distress. Well developed, well nourished. HEENT: Pupils are round and equally reacting to light. EOMI. No scleral icterus. No conjunctival pallor. Normocephalic, atraumatic. No pharyngeal erythema. No thyromegaly. CARDIOVASCULAR: S1 and S2 present. No murmurs, rubs, or gallops. PULMONARY: Chest is clear to auscultation, no wheezing or crackles. ABDOMEN: Soft, nontender, nondistended, normoactive bowel sounds. No palpable organomegaly. MUSCULOSKELETAL: Right hand swelling, tenderness improved, unable to completely bend right middle finger due to swelling and pain EXTREMITIES: No cyanosis, clubbing, or pedal edema. NEUROLOGICAL: Gross neurological examination did not reveal any focal deficits. SKIN: No rashes. Assessment: Dog bite with cellulitis of the dorsum of the hand extending up to the elbow with decreased range of motion. Failed outpatient antibiotic therapy with Augmentin Hypertension history Hyperlipidemia history Vaping and occasional marijuana use GI prophylaxis DVT prophylaxis Full code Plan: Patient being followed by infectious disease maintained on IV Unasyn and will continue. Cultures thus far are negative Orthopedics evaluating the patient for the need for possible I&D or irrigation of the area as patient continues to have swelling although significantly improved. Patient is unable to bend that right middle finger and repeat hand x- ray showing no acute fractures although continued soft tissue swelling Continue with Hibiclens soaks per orthopedics and elevating right upper extremity while at rest Patient reporting persistent diarrhea and will obtain a C. difficile, unlikely although just want to make sure it is negative as patient has recently been on 2 courses of antibiotics. If negative will add Imodium as needed for diarrhea Encouraged increase activity as tolerated Monitor for any further fevers and will follow-up on repeat labs to monitor white count Overall prognosis guarded at this time The impression and plan of care has been dictated by Margo Diaz, Nurse Practitioner as directed. Dr. Deni MD I have performed a history and examination and MDM of this patient, discussed the same with the dictator, and agree with the dictator's assessment and plan as written ,documented as a scribe. Based on total visit time, I have performed more than 50% of the visit. Objective - Vital Signs Vital signs: Vital Signs Temp 98.5 F 07/13/24 07:00 Pulse 57 L 07/13/24 07:00 Resp 16 07/13/24 07:00 BP 149/78 07/13/24 07:00 Pulse Ox 100 07/13/24 07:00 FiO2 Intake & Output 07/12/24 07/13/24 07/13/24 18:59 06:59 18:59 Intake Total 456 Balance 456 Intake: Oral 456 Other: Voiding Method Toilet # Voids 3 - Labs CBC & Chem 7: 07/13/24 05:01 07/13/24 05:01 Labs: Abnormal Lab Results - Last 24 Hours (Table) 07/13/24 07/13/24 Range/Units 05:01 05:01 RBC 3.75 L (3.80-5.40) m/uL Chloride 110 H (98-107) mmol/L Total Protein 5.9 L (6.3-8.2) g/dL Albumin 3.2 L (3.5-5.0) g/dL Microbiology - Last 24 Hours (Table) 07/10/24 04:03 Anaerobic Culture - Preliminary Hand - Right 07/10/24 00:55 Blood Culture - Preliminary Blood 07/10/24 04:03 Gram Stain - Final Hand - Right Wound Culture - Final
[2024-07-13] MEDS: methylPREDNISolone SOD SUCCIN 250 MG in SODIUM CHLORIDE 0.9% 100 ML IVPB SCH (16:36)
--- NOTE | 2024-07-14 07:58 | P.PN ---
Subjective Progress Note Date: 07/13/24 Principal diagnosis: Reason for follow-up is right hand dog bite cellulitis Patient is a 48-year-old female with a past medical history difficult for hypertension hyperlipidemia apparently the patient was bitten by her pet dog while she was trying to cut her nails subsequently presented to hospital with worsening swelling redness to the dorsum of the right hand concerning for dog bite cellulitis. On today's evaluation that is 07/13/2024, patient has been afebrile, patient is breathing comfortably and is currently on room air, patient denies having any significant cough no chest pain, patient denies nausea vomiting or diarrhea and no abdominal pain patient right hand swelling redness slightly decreased still having difficulty moving the right index finger. Patient white count 6.9 creatinine 0.70 blood and local cultures so far negative Objective - Vital Signs Vital signs: Vital Signs Temp 98.5 F 07/13/24 07:00 Pulse 57 L 07/13/24 07:00 Resp 16 07/13/24 07:00 BP 149/78 07/13/24 07:00 Pulse Ox 100 07/13/24 07:00 FiO2 Intake & Output 07/12/24 07/13/24 07/13/24 18:59 06:59 18:59 Intake Total 456 Balance 456 Intake: Oral 456 Other: Voiding Method Toilet Toilet # Voids 3 - Exam GENERAL DESCRIPTION: Middle-age female lying in bed in no distress RESPIRATORY SYSTEM: Unlabored breathing , decreased breath sounds at bases HEART: S1 S2 regular rate and rhythm , ABDOMEN: Soft , no tenderness EXTREMITIES: Right hand dorsum swelling redness slightly decreased - Labs CBC & Chem 7: 07/13/24 05:01 07/13/24 05:01 Labs: Abnormal Lab Results - Last 24 Hours (Table) 07/13/24 07/13/24 Range/Units 05:01 05:01 RBC 3.75 L (3.80-5.40) m/uL Chloride 110 H (98-107) mmol/L Total Protein 5.9 L (6.3-8.2) g/dL Albumin 3.2 L (3.5-5.0) g/dL Microbiology - Last 24 Hours (Table) 07/10/24 04:03 Anaerobic Culture - Preliminary Hand - Right 07/10/24 00:55 Blood Culture - Preliminary Blood 07/10/24 04:03 Gram Stain - Final Hand - Right Wound Culture - Final Assessment and Plan (1) Cellulitis of hand Current Visit: Yes Status: Acute Priority: Medium Code(s): L03.119 - CELLULITIS OF UNSPECIFIED PART OF LIMB SNOMED Code(s): 83755004 (2) Dog bite Current Visit: Yes Status: Acute Priority: Medium Code(s): W54.0XXA - BITTEN BY DOG, INITIAL ENCOUNTER SNOMED Code(s): 689000582 (3) Failure of outpatient treatment Current Visit: Yes Status: Acute Code(s): Z78.9 - OTHER SPECIFIED HEALTH STATUS SNOMED Code(s): 488575109 Plan: 1patient with right hand pain swelling redness started after the dog bite failing outpatient oral Augmentin therapy likely from the burden of disease and will need to cover for the polymicrobial oral glendy of the dog x-ray did not show any bony changes. 2patient remains to be afebrile white count has normalized swelling to the right hand dorsum slightly decreased no drainage 3patient will be treated with Unasyn 3 g every 6 hours while inpatient await further evaluation as or as the decreased mobility of the right index finger to make sure no evidence of any tenosynovitis or need for surgical exploration Dictation was produced using [employer] dictation software. please excuse any grammatical, word or spelling errors. Time with Patient: Less than 30
[2024-07-14 08:21] LABS: HCT 34.4 % (37.2-46.3); HGB 11.5 g/dL (12.0-15.0); MCH 30.3 pg (27.0-32.0); MCHC 33.4 g/dL (32.0-37.0); MCV 90.5 FL (80.0-97.0); Mean Platelet Volume 9.7 FL (9.5-12.2); NRBC Per 100 WBC 0 X 10*3/uL (0.00-0.01); Platelet Count 355 X 10*3/uL (140-440); RDW 12.6 % (11.5-14.5)
[2024-07-14 08:59] LABS: BUN/Creat Ratio 13.67 Ratio (12.00-20.00); Blood Urea Nitrogen 8.2 mg/dL (9.0-27.0); Calcium 9.2 mg/dL (8.7-10.3); Chloride 103 mmol/L (96-109); Glucose 134 mg/dL (70-110); Magnesium 1.9 mg/dL (1.5-2.4); Potassium 3.7 mmol/L (3.5-5.5); Sodium 140 mmol/L (135-145)
[2024-07-14 11:07] LABS: Basophils # (A) 0.01 X 10*3/uL (0.00-0.10); Basophils % (A) 0.1 %; Eosinophils # (A) 0 X 10*3/uL (0.04-0.35); Eosinophils % (A) 0 %; Lymphocytes # (A) 0.92 X 10*3/uL (0.90-5.00); Lymphocytes % (A) 13.1 %; Monocytes # (A) 0.06 X 10*3/uL (0.20-1.00); Monocytes % (A) 0.9 %; Neutrophils # (A) 5.97 X 10*3/uL (1.80-7.70); Neutrophils % (A) 85.3 %
[2024-07-14] MEDS: LOPERAMIDE 2 MG CAP PO PRN (11:29)
[2024-07-14 13:17] VITALS: BP 171/75; PULSE 57; RESP 17; TEMP 97.5
--- NOTE | 2024-07-14 13:56 | P.PN ---
Subjective Progress Note Date: 07/14/24 Principal diagnosis: Right hand dog bite, cellulitis She is seen at bedside today regarding her right hand. She feels that she has significantly improved overall with swelling, redness and pain. The pain and swelling at the 3rd digit has improved .She has no new complaints. She denies numbness or fevers. She has been doing soaks and receiving IV antibiotics. Objective - Vital Signs Vital signs: Vital Signs Temp 97.5 F L 07/14/24 13:16 Pulse 57 L 07/14/24 13:16 Resp 17 07/14/24 13:16 BP 171/75 07/14/24 13:16 Pulse Ox 95 07/14/24 13:16 FiO2 Intake & Output 07/13/24 07/14/24 07/14/24 18:59 06:59 18:59 Intake Total 118 118 Balance 118 118 Intake: Oral 118 118 Other: Voiding Method Toilet # Voids 3 - Exam There continues to be improved erythema and edema to right hand and digits. No progressive erythema. Mild tenderness. Not hot. There is no drainage of a puncture wound at dorsum of right hand. There is no bleeding. Motor and sensation is intact in hand and digits. ROM of all digits improved. less than 2 sec cap refill in all digits. - Labs CBC & Chem 7: 07/14/24 04:55 07/14/24 04:55 Labs: Abnormal Lab Results - Last 24 Hours (Table) 07/14/24 07/14/24 Range/Units 04:55 04:55 RBC 3.80 L (4.10-5.20) X 10*6/uL Hgb 11.5 L (12.0-15.0) g/dL Hct 34.4 L (37.2-46.3) % Monocytes # 0.06 L (0.20-1.00) X 10*3/uL Eosinophils # 0 L (0.04-0.35) X 10*3/uL Carbon Dioxide 21.0 L (21.6-31.8) mmol/L Anion Gap 16.00 H (4.00-12.00) mmol/L BUN 8.2 L (9.0-27.0) mg/dL Glucose 134 H (70-110) mg/dL Microbiology - Last 24 Hours (Table) 07/10/24 04:03 Anaerobic Culture - Final Hand - Right 07/10/24 00:55 Blood Culture - Preliminary Blood Assessment and Plan (1) Cellulitis of hand Narrative/Plan: She continues to improve significantly. She is afebrile and WBC is improved. Cultures negative. She may be discharged from orthopedic standpoint. She will be discharged on Augmentin and ibuprofen. Continue with pain management, elevate hand/extremity, warm soapy soaks 20 mins several times per day. F/U in office Current Visit: Yes Status: Acute Priority: Medium Code(s): L03.119 - CELLULITIS OF UNSPECIFIED PART OF LIMB SNOMED Code(s): 35053513 (2) Dog bite Current Visit: Yes Status: Acute Priority: Medium Code(s): W54.0XXA - BITTEN BY DOG, INITIAL ENCOUNTER SNOMED Code(s): 562977248 Time with Patient: Less than 30
[2024-07-14] MEDS ORDERED: CHOLESTYRAMINE (WITH SUGAR) 4 GM PACKET PO SCH (14:36)
--- NOTE | 2024-07-14 14:47 | P.DS ---
Providers Date of admission: 07/13/24 09:12 Expected date of discharge: 07/14/24 Attending physician: Lana Johnson Consults: 07/10/24 02:47 Consult Physician Urgent Consulting Provider: Tavia Martel Consult Reason/Comments: Dog bite cellulitis to the hand Do you want consulting provider notified?: Yes, Notify in am 07/10/24 22:49 Consult Physician Routine Consulting Provider: José Lea Consult Reason/Comments: Dog bite Do you want consulting provider notified?: Yes Primary care physician: Damián Keith Hospital Course: Final diagnosis Dog bite with cellulitis of the dorsum of the hand extending up to the elbow with decreased range of motion. Failed outpatient antibiotic therapy Hypertension history Hyperlipidemia history GI prophylaxis DVT prophylaxis Full code Discharge disposition Patient is being discharged in a stable condition with guarded prognosis to home. Patient will follow-up with Dr. Keith in the outpatient setting upon discharge. Patient is to continue with antibiotics twice daily for 2 weeks with outpatient follow-up with orthopedics as well as infectious disease as scheduled. Total time taken is greater than 35 minutes. Hospital course This is a 48 year-old female who was recently admitted from the emergency department with failure of outpatient treatment due to a dog bite with surrounding cellulitis of the dorsum of the right hand extending up to the elbow with decreasing range of motion. Patient was started on Augmentin outpatient although persisted to have increasing pain with redness and swelling and inability to use her right hand. Patient did receive a tetanus shot and was hospitalized for IV antibiotic therapy with infectious disease and orthopedic evaluation. Initially orthopedics had planned on incision and drainage due to continued swelling with concerns of tenosynovitis along with surrounding cellulitis. Blood cultures and wound cultures are negative and patient was maintained on high-dose steroids along with IV antibiotic therapy and pain management. Patient showing some clinical improvement and will continue with oral Augmentin twice daily for a 2-week course per ID recommendations. Patient requiring Hibiclens soaks 3 times daily per orthopedics and has been instructed to keep the right hand elevated while at rest. Patient showing some improvement and has been cleared for discharge by orthopedics with no plans of immediate surgical intervention recommending outpatient follow-up in the clinic in the next 1 week. Patient has been cleared by infectious disease with recommendations for oral Augmentin for 2 weeks along with continued local wound care. Patient has been instructed to monitor for any further fevers, increased swelling, or redness or streaking up the right arm and has been instructed to call 911 or report to the nearest ER. Please refer to other consultation notes for further HPI. During hospitalization patient did undergo x-rays which were unremarkable showing no acute fracture although is showing significant soft tissue swelling of the right hand third digit. Patient continues to report significant diarrhea and has been started on Questran along with Imodium and C. difficile was canceled per lab as it was not positive for C. difficile. Patient will continue with supportive care and instructed to follow-up with repeat labs in the next few days to monitor kidney functions and electrolytes closely. Encourage fluids and rest and monitor for any further fevers. Currently no reports of chest pain, shortness of breath, or palpitations. Patient is afeb rile. No reports of nausea or vomiting and patient is tolerating diet. Patient will be discharged home today. Guarded prognosis. Patient was hospitalized from 07/09/2024 through 07/14/2024. Patient has been instructed to follow-up with her primary care provider on discharge along with infectious disease and orthopedics outpatient. Physical exam: Gen: This is a 48-year-old female who is awake, alert and oriented x 3, well- developed, well-nourished HEENT: Head is atraumatic, normocephalic. Pupils equal, round. Sclerae is anicteric. NECK: Supple. No JVD. No lymphadenopathy. No thyromegaly. LUNGS: Diminished breath sounds bilaterally otherwise clear to auscultation. No wheezes or rhonchi. No intercostal retractions. HEART: S1, S2 are muffled ABDOMEN: Soft. Bowel sounds are present. No masses. No tenderness. EXTREMITIES: No pedal edema. No calf tenderness. Right hand showing some bruising of the right middle digit with 2 puncture ferreira from a dog bite although significant improvements in swelling and minimal redness noted NEUROLOGICAL: Patient is awake, alert and oriented x3. Cranial nerves 2 through 12 are grossly intact. Please refer to medication reconciliation sheet for a list of medications. The impression and plan of care has been dictated by Margo Diaz, Nurse Practitioner as directed. Dr. Deni MD I have performed a history and examination and MDM of this patient, discussed the same with the dictator, and agree with the dictator's assessment and plan as written ,documented as a scribe. Based on total visit time, I have performed more than 50% of the visit. Patient Condition at Discharge: Stable Plan - Discharge Summary Discharge Rx Participant: No New Discharge Prescriptions: New Ibuprofen 800 mg PO Q8H PRN #21 tab PRN Reason: Pain Acetaminophen Tab [Tylenol] 650 mg PO Q6HR PRN tab PRN Reason: Mild Pain Or Fever > 100.5 Loperamide [Imodium] 2 mg PO QID PRN #30 cap PRN Reason: Diarrhea Continue Losartan [Cozaar] 50 mg PO BID-W/MEALS DULoxetine HCL [Cymbalta] 20 mg PO DAILY carvediloL [Coreg] 3.125 mg PO BID-W/MEALS Rosuvastatin [Crestor] 10 mg PO HS Omeprazole 20 mg PO DAILY Amoxic-Pot Clav 875-125Mg [Augmentin 875-125] 1 tab PO BID 14 Days #28 tab Changed HYDROcodone/APAP 5-325MG [[place] 5-325] 2 tab PO Q6H PRN #12 tab PRN Reason: Pain Discontinued Ibuprofen [Motrin] 800 mg PO Q6H PRN PRN Reason: Pain Discharge Medication List DULoxetine HCL [Cymbalta] 20 mg PO DAILY 07/10/24 [History] Losartan [Cozaar] 50 mg PO BID-W/MEALS 07/10/24 [History] Omeprazole 20 mg PO DAILY 07/10/24 [History] Rosuvastatin [Crestor] 10 mg PO HS 07/10/24 [History] carvediloL [Coreg] 3.125 mg PO BID-W/MEALS 07/10/24 [History] Acetaminophen Tab [Tylenol] 650 mg PO Q6HR PRN tab 07/14/24 [Rx] Amoxic-Pot Clav 875-125Mg [Augmentin 875-125] 1 tab PO BID 14 Days #28 tab 07/14/24 [Rx] HYDROcodone/APAP 5-325MG [[place] 5-325] 2 tab PO Q6H PRN #12 tab 07/14/24 [Rx] Ibuprofen 800 mg PO Q8H PRN #21 tab 07/14/24 [Rx] Loperamide [Imodium] 2 mg PO QID PRN #30 cap 07/14/24 [Rx] Follow up Appointment(s)/Referral(s): Navarro Dodge, JOAQUIM [PHYSICIAN [employer] PERSON] - 1 Week Prior,DO Damián [Primary Care Provider] - 1-2 days José Lea MD [STAFF PHYSICIAN] - 10 Days Patient Instructions/Handouts: Animal Bite (DC) Activity/Diet/Wound Care/Special Instructions: take meds as directed continue elevation and soaks keep wounds clean and dry F/U in office with infectious disease in 1 to 2 weeks Continue taking antibiotics for 2-week course per ID recommendations Continue to elevate right upper extremity frequently and while at rest Discharge Disposition: HOME SELF-CARE
--- NOTE | 2024-07-14 15:36 | P.PN ---
Subjective Progress Note Date: 07/14/24 Principal diagnosis: Reason for follow-up is right hand dog bite cellulitis Patient is a 48-year-old female with a past medical history difficult for hypertension hyperlipidemia apparently the patient was bitten by her pet dog while she was trying to cut her nails subsequently presented to hospital with worsening swelling redness to the dorsum of the right hand concerning for dog bite cellulitis. On today's evaluation that is 07/14/2024, Patient is afebrile this morning patient denies having any chest pain shortness of breath or cough, the patient is currently on room air, patient denies any abdominal pain no diarrhea no nausea no vomiting, the patient pain to the right hand has decreased in intensity. Patient white count 7.0, creatinine 0.6 Objective - Vital Signs Vital signs: Vital Signs Temp 97.6 F 07/14/24 07:29 Pulse 51 L 07/14/24 07:29 Resp 16 07/14/24 07:29 BP 177/71 07/14/24 07:29 Pulse Ox 95 07/14/24 07:29 FiO2 Intake & Output 07/13/24 07/14/24 07/14/24 18:59 06:59 18:59 Intake Total 118 118 Balance 118 118 Intake: Oral 118 118 Other: Voiding Method Toilet # Voids 3 - Exam GENERAL DESCRIPTION: Middle-age female lying in bed in no distress RESPIRATORY SYSTEM: Unlabored breathing , decreased breath sounds at bases HEART: S1 S2 regular rate and rhythm , ABDOMEN: Soft , no tenderness EXTREMITIES: Right hand dorsum swelling redness slightly decreased - Labs CBC & Chem 7: 07/14/24 04:55 07/14/24 04:55 Labs: Abnormal Lab Results - Last 24 Hours (Table) 07/14/24 07/14/24 Range/Units 04:55 04:55 RBC 3.80 L (4.10-5.20) X 10*6/uL Hgb 11.5 L (12.0-15.0) g/dL Hct 34.4 L (37.2-46.3) % Monocytes # 0.06 L (0.20-1.00) X 10*3/uL Eosinophils # 0 L (0.04-0.35) X 10*3/uL Carbon Dioxide 21.0 L (21.6-31.8) mmol/L Anion Gap 16.00 H (4.00-12.00) mmol/L BUN 8.2 L (9.0-27.0) mg/dL Glucose 134 H (70-110) mg/dL Microbiology - Last 24 Hours (Table) 07/10/24 04:03 Anaerobic Culture - Final Hand - Right 07/10/24 00:55 Blood Culture - Preliminary Blood Assessment and Plan (1) Cellulitis of hand Status: Acute Priority: Medium Code(s): L03.119 - CELLULITIS OF UNSPECIFIED PART OF LIMB SNOMED Code(s): 41188831 (2) Dog bite Status: Acute Priority: Medium Code(s): W54.0XXA - BITTEN BY DOG, INITIAL ENCOUNTER SNOMED Code(s): 972462534 (3) Failure of outpatient treatment Status: Acute Code(s): Z78.9 - OTHER SPECIFIED HEALTH STATUS SNOMED Code(s): 316710835 Plan: 1patient with right hand pain swelling redness started after the dog bite failing outpatient oral Augmentin therapy likely from the burden of disease and will need to cover for the polymicrobial oral glendy of the dog x-ray did not show any bony changes. 2patient remains to be afebrile white count has normalized swelling to the right hand dorsum slightly decreased no drainage 3patient did have improvement to the right hand overall swelling and redness and able to move her index finger better we will continue Unasyn finishing therapy with the oral Augmentin x 2 weeks and close outpatient follow-up discussed with [employer] for admitting team Dictation was produced using [employer] dictation software. please excuse any grammatical, word or spelling errors. Time with Patient: Less than 30
== END 2024-07-14 15:13 | disposition home or self-care (01) | DRG 603 ==
LOC: EC 23:57 → 6NMEDSUR 07-10 02:49 → OBSVTOIN 07-13 09:12
PROVIDERS: ADMIT Hospitalist; ATTEND Hospitalist
DX: L03.113 Cellulitis of right upper limb (principal); I10 Essential (primary) hypertension; E78.5 Hyperlipidemia, unspecified; S61.451A Open bite of right hand, initial encounter; F17.290 Nicotine dependence, other tobacco product, uncomplicated; M65.941 Unspecified synovitis and tenosynovitis, right hand; R19.7 Diarrhea, unspecified; W54.0XXA Bitten by dog, initial encounter; Z79.899 Other long term (current) drug therapy; Z88.5 Allergy status to narcotic agent
CPT/HCPCS: 36415; 80048; 80053; 83605; 83735; 85025; 85652; 86140; 87040; 87070; 87075; 87205; 96361; 96365; 96375; 96376; 99284

== ENCOUNTER 2025-01-20 15:32 | Inpatient (IN) | payer BC, OTHER ==
[2025-01-20 16:05] LABS: Basophils # (A) 0.06 10*3/uL (0.00-0.10); Basophils % (A) 0.4 %; Eosinophils # (A) 0.08 10*3/uL (0.04-0.35); Eosinophils % (A) 0.5 %; HCT 38.5 % (37.2-46.3); HGB 13.1 g/dL (12.0-15.0); Lymphocytes # (A) 1.87 10*3/uL (0.90-5.00); MCH 29.6 pg (27.0-32.0); MCV 86.9 fL (80.0-97.0); Mean Platelet Volume 9.5 fL (9.5-12.2); Monocytes # (A) 1.52 10*3/uL (0.20-1.00); Neutrophils # (A) 13.34 10*3/uL (1.80-7.70); Neutrophils % (A) 78.7 %; Platelet Count 395 10*3/uL (140-440); RBC 4.43 10*6/uL (4.10-5.20); RDW 13.8 % (11.5-14.5); WBC 16.94 10*3/uL (4.50-10.00)
[2025-01-20 16:26] LABS: ALT 35 U/L (4-34); AST 43 U/L (14-36); African American GFR (CKD) >90 (>60 ml/min/1.73 sqM); Albumin 4.4 g/dL (3.5-5.0); Alkaline Phosphatase 98 U/L (38-126); Amylase 44 U/L (30-110); Anion Gap 10 mmol/L; Blood Urea Nitrogen 11 mg/dL (7-17); Calcium 9.5 mg/dL (8.4-10.2); Carbon Dioxide 25 mmol/L (22-30); Chloride 102 mmol/L (98-107); Glucose 116 mg/dL (74-99); Lipase 70 U/L (23-300); Non-African American GFR(CKD) >90 (>60 ml/min/1.73 sqM); Potassium 4.1 mmol/L (3.5-5.1); Sodium 137 mmol/L (137-145); Total Bilirubin 0.7 mg/dL (0.2-1.3); Total Protein 7.8 g/dL (6.3-8.2)
--- NOTE | 2025-01-20 16:41 | ED ---
Abdominal Pain HPI - General Source: patient, RN notes reviewed Mode of arrival: wheelchair Limitations: no limitations <Arely Fernandez - Last Filed: 01/20/25 17:04> <Angelica Naylor - Last Filed: 01/20/25 21:11> - General Chief Complaint: Abdominal Pain Stated Complaint: Abd Pain/Vomitting Time Seen by Provider: 01/20/25 16:39 - History of Present Illness Initial Comments: QUick note: 49 year old female presenting to the ER for evaluation of abdominal pain. Patient reports 3 days ago she started experiencing pelvic pain the pain has since moved to RLQ and back. Patient starts her period have been very irregular recently. ADmits to hot flashes and states "everything hurts". (Arely Fernandez) - Related Data Home Medications Medication Instructions Recorded Confirmed DULoxetine HCL [Cymbalta] 20 mg PO DAILY 07/10/24 07/10/24 Losartan [Cozaar] 50 mg PO BID-W/MEALS 07/10/24 07/10/24 Omeprazole 20 mg PO DAILY 07/10/24 07/10/24 Rosuvastatin [Crestor] 10 mg PO HS 07/10/24 07/10/24 carvediloL [Coreg] 3.125 mg PO BID-W/MEALS 07/10/24 07/10/24 Previous Rx's Medication Instructions Recorded Acetaminophen Tab [Tylenol] 650 mg PO Q6HR PRN tab 07/14/24 Amoxic-Pot Clav 875-125Mg 1 tab PO BID 14 Days #28 tab 07/14/24 [Augmentin 875-125] Cholestyramine (with Sugar) 4 gm PO BID PRN #20 packet 07/14/24 [Questran] HYDROcodone/APAP 5-325MG [[place] 2 tab PO Q6H PRN #12 tab 07/14/24 5-325] Ibuprofen 800 mg PO Q8H PRN #21 tab 07/14/24 Loperamide [Imodium] 2 mg PO QID PRN #30 cap 07/14/24 Allergies Allergy/AdvReac Type Severity Reaction Status Date / Time bee venom protein (honey bee) Allergy Anaphylaxis Verified 07/10/24 11:24 morphine Allergy Rash/Hives Verified 07/10/24 11:24 Review of Systems ROS Other: All systems not noted in ROS Statement are negative. <Arely Fernandez - Last Filed: 01/20/25 17:04> ROS Other: All systems not noted in ROS Statement are negative. <Angelica Naylor - Last Filed: 01/20/25 21:11> ROS Statement: Those systems with pertinent positive or pertinent negative responses have been documented in the HPI. Past Medical History Past Medical History: Hyperlipidemia, Hypertension History of Any Multi-Drug Resistant Organisms: None Reported Past Surgical History: Orthopedic Surgery, Tubal Ligation Additional Past Surgical History / Comment(s): 11 screws and plate in right ankle due to tib/fib fracture, oral surgery, top plate dentures and bottom metal plates Past Anesthesia/Blood Transfusion Reactions: Previous Problems w/ Anesthesia Additional Past Anesthesia/Blood Transfusion Reaction / Comment(s): anesthesia wore off quickly and woke up during surgery Past Psychological History: No Psychological Hx Reported Smoking Status: Vaper Past Alcohol Use History: Occasional Past Drug Use History: Marijuana <Arely Fernandez - Last Filed: 01/20/25 17:04> General Exam Limitations: no limitations <Arely Fernandez - Last Filed: 01/20/25 17:04> - General Exam Comments Initial Comments: Visual Physical Exam Vital signs reviewed General: Well-appearing, nontoxic, anxious Head: Normocephalic, atraumatic Eyes: PERRLA, EOMI ENT: Airway patent Chest: Nonlabored breathing Skin: No visual rash, normal skin tone Neuro: Alert and oriented 3 Musculoskeletal: No gross abnormalities (Arely Fernandez) Course Vital Signs 01/20/25 15:38 Temperature 97.7 F Pulse Rate 106 H Respiratory 36 H Rate Blood Pressure 150/80 O2 Sat by Pulse 96 Oximetry Medical Decision Making - Lab Data Result diagrams: 01/20/25 15:53 01/20/25 15:53 <Arely Fernandez - Last Filed: 01/20/25 17:04> - Lab Data Result diagrams: 01/20/25 15:53 01/20/25 15:53 <Angelica Naylor - Last Filed: 01/20/25 21:11> - Medical Decision Making I performed the quick note portion of this chart. Electronically signed by CLAY Coles Deann) - Lab Data Lab Results 01/20/25 01/20/25 01/20/25 Range/Units 15:53 15:53 17:40 WBC 16.94 H (4.50-10.00) 10*3/uL RBC 4.43 (4.10-5.20) 10*6/uL Hgb 13.1 (12.0-15.0) g/dL Hct 38.5 (37.2-46.3) % MCV 86.9 (80.0-97.0) fL MCH 29.6 (27.0-32.0) pg MCHC 34.0 (32.0-37.0) g/dL Plt Count 395 (140-440) 10*3/uL MPV 9.5 (9.5-12.2) fL Immature Gran % (Auto) 0.4 % Neutrophils % 78.7 % Lymphocytes % 11.0 % Monocytes % 9.0 % Eosinophils % 0.5 % Basophils % 0.4 % Immature Gran # 0.07 H (0.00-0.04) 10*3/uL Neutrophils # 13.34 H (1.80-7.70) 10*3/uL Lymphocytes # 1.87 (0.90-5.00) 10*3/uL Monocytes # 1.52 H (0.20-1.00) 10*3/uL Eosinophils # 0.08 (0.04-0.35) 10*3/uL Basophils # 0.06 (0.00-0.10) 10*3/uL Sodium 137 (137-145) mmol/L Potassium 4.1 (3.5-5.1) mmol/L Chloride 102 (98-107) mmol/L Carbon Dioxide 25 (22-30) mmol/L Anion Gap 10 mmol/L BUN 11 (7-17) mg/dL Creatinine 0.69 (0.52-1.04) mg/dL Est GFR (CKD-EPI)AfAm >90 (>60 ml/min/1.73 sqM) Est GFR (CKD-EPI)NonAf >90 (>60 ml/min/1.73 sqM) Glucose 116 H (74-99) mg/dL Calcium 9.5 (8.4-10.2) mg/dL Total Bilirubin 0.7 (0.2-1.3) mg/dL AST 43 H (14-36) U/L ALT 35 H (4-34) U/L Alkaline Phosphatase 98 (38-126) U/L Total Protein 7.8 (6.3-8.2) g/dL Albumin 4.4 (3.5-5.0) g/dL Amylase 44 (30-110) U/L Lipase 70 (23-300) U/L HCG, Quant 3.2 mIU/mL Urine Color Yellow Urine Appearance Turbid H (Clear) Urine pH 7.5 (5.0-8.0) Ur Specific [place] 1.017 (1.001-1.035) Urine Protein 2+ H (Negative) Urine Glucose (UA) Negative (Negative) Urine Ketones Negative (Negative) Urine Blood Moderate H (Negative) Urine Nitrite Positive H (Negative) Urine Bilirubin Negative (Negative) Urine Urobilinogen <2.0 (<2.0) mg/dL Ur Leukocyte Esterase Large H (Negative) Urine RBC >182 H (0-5) /hpf Urine WBC >182 H (0-5) /hpf Urine WBC Clumps Many H (None) /hpf Ur Squamous Epith Cells 1 (0-4) /hpf Urine Bacteria Rare H (None) /hpf Urine Mucus Rare H (None) /hpf Disposition <Arely Fernandez - Last Filed: 01/20/25 17:04> Is patient prescribed a controlled substance at d/c from ED?: No Time of Disposition: 21:11 Decision to Admit Reason: Admit from EC Decision Date: 01/20/25 Decision Time: 21:11 <Angelica Naylor - Last Filed: 01/20/25 21:11> Clinical Impression: Pyelonephritis, Leukocytosis, Sepsis Disposition: ADMITTED IP TO THIS [facility] Condition: Stable Referrals: Damián Keith DO [Primary Care Provider] - 1-2 days
[2025-01-20 16:43] LABS: HCG,Quantitative Serum 3.2 mIU/mL
[2025-01-20] MEDS: KETOROLAC 15 MG/ML 1 ML VIAL IVP STA (16:52)
[2025-01-20 17:52] LABS: Appearance,Urine Turbid (Clear); Bacteria,Urine Rare /hpf; Bilirubin,Urine Negative (Negative); Blood,Urine Moderate (Negative); Color,Urine Yellow; Glucose,Urine (UA) Negative (Negative); Ketones,Urine Negative (Negative); Leukocyte Esterase,Urine Large (Negative); Mucus,Urine Rare /hpf; Nitrite,Urine Positive (Negative); PH, Urine 7.5 (5.0-8.0); Protein,Urine 2+ (Negative); RBC,Urine >182 /hpf (0-5); Specific Gravity,Urine 1.017 (1.001-1.035); Squamous Epithelial Cell,Urine 1 /hpf (0-4); Urobilinogen,Urine <2.0 mg/dL (<2.0); WBC,Urine >182 /hpf (0-5)
[2025-01-20] MEDS: cefTRIAXone IN SWFI 1,000 MG/10 ML SYRINGE IVP STA (18:13)
--- NOTE | 2025-01-20 18:22 | CT ---
EXAMINATION TYPE: CT abdomen pelvis wo con CT DLP: 500.3 mGycm, Automated exposure control for dose reduction was used. DATE OF EXAM: 01/20/2025 5:59 PM COMPARISON: None. CLINICAL INDICATION:Female, 49 years old with history of right flank pain rad to groin; Abdominal mireille n x 3 days. TECHNIQUE: Axial CT abdomen pelvis wo con;Sagittal and coronal reformats were created on a separate workstation. Contrast used: mL of , (none if empty) Oral contrast used: without Oral Contrast (none if empty) FINDINGS: LOWER CHEST: Unremarkable ABDOMEN LIVER: Unremarkable GALLBLADDER AND BILE DUCTS: Unremarkable. PANCREAS: Unremarkable. SPLEEN: Unremarkable. ADRENAL GLANDS: Unremarkable. KIDNEYS AND URETERS: There is mild right hydroureteronephrosis with fat stranding surrounding the ext ent of the right ureter to the level of the urinary bladder. No radiodense calculi are seen in the bi lateral kidneys. There is mild right perinephric fat stranding. No left hydronephrosis.. PELVIS BLADDER: Incompletely distended demonstrating mild perivesicular fat stranding. REPRODUCTIVE: Calcified fibroid is seen. Tubal ligation clips are suggested. ABDOMEN & PELVIS STOMACH AND BOWEL: Stomach is grossly unremarkable. Small bowel is normal in caliber. The appendix is visualized and is within normal limits. No evidence of bowel obstruction. PERITONEUM/RETROPERITONEUM: There is fat stranding seen in the mid abdominal mesentery. No evidence o f pneumoperitoneum or free fluid. VASCULATURE: No evidence of aortic aneurysm. MUSCULOSKELETAL: No acute osseous abnormalities LYMPH NODES: Multiple subcentimeter lymph nodes are seen in the mid abdomen and bilateral iliac chain . SOFT TISSUE/ABDOMINAL WALL: Unremarkable IMPRESSION: Mild right hydroureteronephrosis with inflammatory changes surrounding the extent of the right ureter and right kidney. No renal calculi are identified. Given the mild perivesicular inflammatory changes findings are concerning for an ascending urinary tract infection with possible pyelonephritis. Findi ngs could also be related to a recently passed calculus. [facility], , 01/20/2025 6:19 PM
[2025-01-20] MEDS: SODIUM CHLORIDE 0.9% 1,000 ML IV SCH ×2 (20:47→21:12)
[2025-01-20] MEDS: ONDANSETRON 4 MG/2 ML VIAL IVP STA (21:09)
[2025-01-20] MEDS: HYDROmorphone 1 MG/ML 1 ML SYRINGE IVP STA (21:10)
[2025-01-20] MEDS ORDERED: NALOXONE 0.4 MG/ML 1 ML VIAL IV PRN (21:12)
--- NOTE | 2025-01-20 22:31 | US ---
EXAMINATION TYPE: US transvaginal DATE OF EXAM: 01/20/2025 COMPARISON: CT same day CLINICAL INDICATION: , 49 years old with history of suprapubic pain; suprapubic pain. pt states hx of fibroids and cysts TECHNIQUE: Transvaginal (TV). Transvaginal sonographic images were medically necessary to better assess the following anatomy: Uter us Doppler imaging: Color Doppler Images were obtained. Spectral doppler images were obtained. FINDINGS: Date of LMP: states no period for 8 months, and then randomly had heavy bleeding not too long ago EXAM MEASUREMENTS: Uterus: 9.0 x 4.7 x 4.5 cm Endometrial Stripe: 0.5 cm Right Ovary: 2.1 x 2.3 x 0.9 cm Left Ovary: not visualized due to gas 1. Uterus: Anteverted heterogeneous myometrium. there is a 2.3 x 2.6 x 2.2cm complex area with cedrick cifications and peripheral vascularity seen within the left side of the uterus 2. Endometrium: wnl as best seen 3. Right Ovary: wnl 4. Left Ovary: not visualized due to gas Spectral, color and waveform doppler imaging shows good arterial and venous flow within the right; 5. Bilateral Adnexa: wnl 6. Posterior cul-de-sac: wnl IMPRESSION: Limited evaluation due to overlying gas. Endometrium is within normal size limits. Right ovary is wit hin normal size demonstrating color Doppler flow. Left ovary not visualized. Calcific finding within the uterus is most likely related to fibroid changes. Findings in the pelvis can be further character ized with an MRI pelvis with IV contrast if clinically indicated. Please see CT report from the same day for further intra-abdominal/pelvic details. [facility], , 01/20/2025 10:28 PM
[2025-01-21] MEDS: HYDROmorphone 1 MG/ML 1 ML SYRINGE IVP PRN (01:35)
[2025-01-21 04:56] LABS: Basophils # (A) 0.03 10*3/uL (0.00-0.10); Basophils % (A) 0.3 %; Eosinophils % (A) 0.9 %; HGB 11.6 g/dL (12.0-15.0); Lymphocytes # (A) 1.92 10*3/uL (0.90-5.00); Lymphocytes % (A) 16.7 %; MCH 28.9 pg (27.0-32.0); MCHC 32.2 g/dL (32.0-37.0); MCV 89.6 fL (80.0-97.0); Mean Platelet Volume 9.7 fL (9.5-12.2); Monocytes # (A) 1.22 10*3/uL (0.20-1.00); Monocytes % (A) 10.6 %; Neutrophils # (A) 8.21 10*3/uL (1.80-7.70); Neutrophils % (A) 71.2 %; Platelet Count 310 10*3/uL (140-440); RBC 4.02 10*6/uL (4.10-5.20); RDW 14.1 % (11.5-14.5); WBC 11.51 10*3/uL (4.50-10.00)
[2025-01-21 05:22] LABS: African American GFR (CKD) >90 (>60 ml/min/1.73 sqM); Anion Gap 7 mmol/L; Blood Urea Nitrogen 9 mg/dL (7-17); Calcium 8.7 mg/dL (8.4-10.2); Carbon Dioxide 25 mmol/L (22-30); Chloride 106 mmol/L (98-107); Glucose 93 mg/dL (74-99); Non-African American GFR(CKD) >90 (>60 ml/min/1.73 sqM); Potassium 4.1 mmol/L (3.5-5.1); Sodium 138 mmol/L (137-145)
[2025-01-21] MEDS: ACETAMINOPHEN TAB 325 MG TAB PO PRN (11:51)
[2025-01-21] MEDS: KETOROLAC 15 MG/ML 1 ML VIAL IVP PRN (13:28)
--- NOTE | 2025-01-21 14:55 | P.GSCN ---
History of Present Illness Consult date: 01/21/25 History of present illness: 49-year-old female admitted to the hospital with probable right-sided pyelonephritis. She presented with abdominal pain in particular right sided pain. A CT scan of the abdomen was obtained identifying some mild right hydronephrosis without obvious stone. The hydroureteronephrosis is down to the distal ureter. No stone is identified. There is no history of stones. The urine is distinctly inflamed consistent with a urine infection. Her initial white count was over 16,000 repeat white count is now 11,000. She is on intravenous antibiotics. She is still having discomfort requiring pain meds.THe pain initially was colicky and intense c/w a stone Review of Systems All systems: negative - Constitutional Denies fever, Denies weight loss - EENT Eyes: denies blurred vision Ears, nose, mouth and throat: Denies dysphagia - Cardiovascular Denies chest pain, Denies shortness of breath - Respiratory Denies cough, Denies 7 - Gastrointestinal Reports as per HPI - Genitourinary Genitourinary: Denies dysuria, Denies hematuria - Integumentary Denies rash, Denies unusual bruising - Neurological Denies headaches, Denies syncope - Hematologic/Lymphatic Denies easy bleeding, Denies easy bruising Past Medical History Past Medical History: Hyperlipidemia, Hypertension History of Any Multi-Drug Resistant Organisms: None Reported Past Surgical History: Orthopedic Surgery, Tubal Ligation Additional Past Surgical History / Comment(s): 11 screws and plate in right ankle due to tib/fib fracture, oral surgery, top plate dentures and bottom metal plates Past Anesthesia/Blood Transfusion Reactions: Previous Problems w/ Anesthesia Additional Past Anesthesia/Blood Transfusion Reaction / Comm: anesthesia wore off quickly and woke up during surgery Past Psychological History: No Psychological Hx Reported Smoking Status: Vaper Past Alcohol Use History: Occasional Past Drug Use History: Marijuana Medications and Allergies Home Medications Medication Instructions Recorded Confirmed Type DULoxetine HCL [Cymbalta] 20 mg PO DAILY 07/10/24 01/21/25 History Losartan [Cozaar] 50 mg PO BID 07/10/24 01/21/25 History Omeprazole 20 mg PO DAILY 07/10/24 01/21/25 History Rosuvastatin [Crestor] 10 mg PO HS 07/10/24 01/21/25 History carvediloL [Coreg] 3.125 mg PO BID-W/MEALS 07/10/24 01/21/25 History Celecoxib [CeleBREX] 200 mg PO BID PRN 01/21/25 01/21/25 History Multivitamins, Thera [Multivitamin 1 tab PO DAILY 01/21/25 01/21/25 History (formulary)] Allergies Allergy/AdvReac Type Severity Reaction Status Date / Time bee venom protein (honey bee) Allergy Anaphylaxis Verified 01/21/25 10:23 morphine Allergy Rash/Hives Verified 01/21/25 10:23 Surgical - Exam Vital Signs Temp Pulse Resp BP Pulse Ox 97.7 F 106 H 36 H 150/80 96 01/20/25 15:38 01/20/25 15:38 01/20/25 15:38 01/20/25 15:38 01/20/25 15:38 Results - Labs 01/21/25 04:18 01/21/25 04:18 Abnormal Lab Results - Last 24 Hours (Table) 01/20/25 01/20/25 01/20/25 Range/Units 15:53 15:53 17:40 WBC 16.94 H (4.50-10.00) 10*3/uL RBC (4.10-5.20) 10*6/uL Hgb (12.0-15.0) g/dL Hct (37.2-46.3) % Immature Gran # 0.07 H (0.00-0.04) 10*3/uL Neutrophils # 13.34 H (1.80-7.70) 10*3/uL Monocytes # 1.52 H (0.20-1.00) 10*3/uL Glucose 116 H (74-99) mg/dL AST 43 H (14-36) U/L ALT 35 H (4-34) U/L Urine Appearance Turbid H (Clear) Urine Protein 2+ H (Negative) Urine Blood Moderate H (Negative) Urine Nitrite Positive H (Negative) Ur Leukocyte Esterase Large H (Negative) Urine RBC >182 H (0-5) /hpf Urine WBC >182 H (0-5) /hpf Urine WBC Clumps Many H (None) /hpf Urine Bacteria Rare H (None) /hpf Urine Mucus Rare H (None) /hpf 01/21/25 Range/Units 04:18 WBC 11.51 H (4.50-10.00) 10*3/uL RBC 4.02 L (4.10-5.20) 10*6/uL Hgb 11.6 L (12.0-15.0) g/dL Hct 36.0 L (37.2-46.3) % Immature Gran # (0.00-0.04) 10*3/uL Neutrophils # 8.21 H (1.80-7.70) 10*3/uL Monocytes # 1.22 H (0.20-1.00) 10*3/uL Glucose (74-99) mg/dL AST (14-36) U/L ALT (4-34) U/L Urine Appearance (Clear) Urine Protein (Negative) Urine Blood (Negative) Urine Nitrite (Negative) Ur Leukocyte Esterase (Negative) Urine RBC (0-5) /hpf Urine WBC (0-5) /hpf Urine WBC Clumps (None) /hpf Urine Bacteria (None) /hpf Urine Mucus (None) /hpf Diabetes panel 01/20/25 01/21/25 Range/Units 15:53 04:18 Sodium 137 138 (137-145) mmol/L Potassium 4.1 4.1 (3.5-5.1) mmol/L Chloride 102 106 (98-107) mmol/L Carbon Dioxide 25 25 (22-30) mmol/L BUN 11 9 (7-17) mg/dL Creatinine 0.69 0.55 (0.52-1.04) mg/dL Glucose 116 H 93 (74-99) mg/dL Calcium 9.5 8.7 (8.4-10.2) mg/dL AST 43 H (14-36) U/L ALT 35 H (4-34) U/L Alkaline Phosphatase 98 (38-126) U/L Total Protein 7.8 (6.3-8.2) g/dL Albumin 4.4 (3.5-5.0) g/dL Calcium panel 01/20/25 01/21/25 Range/Units 15:53 04:18 Calcium 9.5 8.7 (8.4-10.2) mg/dL Albumin 4.4 (3.5-5.0) g/dL Pituitary panel 01/20/25 01/21/25 Range/Units 15:53 04:18 Sodium 137 138 (137-145) mmol/L Potassium 4.1 4.1 (3.5-5.1) mmol/L Chloride 102 106 (98-107) mmol/L Carbon Dioxide 25 25 (22-30) mmol/L BUN 11 9 (7-17) mg/dL Creatinine 0.69 0.55 (0.52-1.04) mg/dL Glucose 116 H 93 (74-99) mg/dL Calcium 9.5 8.7 (8.4-10.2) mg/dL Adrenal panel 01/20/25 01/21/25 Range/Units 15:53 04:18 Sodium 137 138 (137-145) mmol/L Potassium 4.1 4.1 (3.5-5.1) mmol/L Chloride 102 106 (98-107) mmol/L Carbon Dioxide 25 25 (22-30) mmol/L BUN 11 9 (7-17) mg/dL Creatinine 0.69 0.55 (0.52-1.04) mg/dL Glucose 116 H 93 (74-99) mg/dL Calcium 9.5 8.7 (8.4-10.2) mg/dL Total Bilirubin 0.7 (0.2-1.3) mg/dL AST 43 H (14-36) U/L ALT 35 H (4-34) U/L Alkaline Phosphatase 98 (38-126) U/L Total Protein 7.8 (6.3-8.2) g/dL Albumin 4.4 (3.5-5.0) g/dL - Imaging CT scan - abdomen: report reviewed, image reviewed CT scan - pelvis: report reviewed, image reviewed Assessment and Plan Assessment: Impression: Urinary tract infection with sepsis probable right-sided pyelonephritis. Possible recently passed right ureteral calculus. Recommendation: Given the CT scan as mentioned as well as no obvious ureteral calculi there is nothing urologic that needs to be done. She should be given antibiotics based on urine cultures once they are back. I did discuss stone disease with the patient. If I can be of further assistance please let us know.
--- NOTE | 2025-01-21 20:26 | HP ---
HISTORY AND PHYSICAL CHIEF COMPLAINT: Abdominal pain. HISTORY OF PRESENT ILLNESS: This is a 49-year-old woman with a past medical history of hypertension, hyperlipidemia, was complaining of abdominal pain. Pain is mostly in the lower part and sometimes radiating to the back according to her. The patient had a CT scan of the abdomen showed mild right hydroureteronephrosis, some inflammatory changes. The possibility of pyelonephritis is considered. The patient was admitted for further evaluation and treatment. The patient is also complaining of irregular excessive bleeding, menstrual bleeding also. Ultrasound has been done and assessed, showed possible fibroid changes. There is no history of any fever, rigors, or chills at this time. PAST MEDICAL HISTORY: Reviewed include hypertension and hyperlipidemia. Rest of the chart is also reviewed. HOME MEDICATIONS: Celebrex, dose and rest of medications reviewed. ALLERGIES: Honey bee and morphine. FAMILY HISTORY: No history of heart disease or strokes in the family. SOCIAL HISTORY: History of vaping and THC. REVIEW OF SYSTEMS: A 14-point review of systems is negative, except as mentioned earlier. PHYSICAL EXAMINATION: VITAL SIGNS: Pulse is 85, blood pressure 135/70, and respirations 16. HEENT: Conjunctivae are normal. NECK: No JVD. CARDIOVASCULAR: S1, S2. RESPIRATION: Breath sounds diminished at the bases. ABDOMEN: Soft, mild diffuse tenderness. No guarding. No mass. LEGS: No edema. NERVOUS SYSTEM: No focal deficit. LABORATORY DATA: WBC 16.9. ASSESSMENT: 1. Lower abdominal pain, possible right pyelonephritis. 2. Possible acute urinary tract infection. 3. Irregular menstrual bleeding, possible fibroid. 4. Hypertension. 5. Hyperlipidemia. 6. Multiple complex medical issues. RECOMMENDATIONS AND DISCUSSION: This 49-year-old woman presented with multiple complex medical issues. We will monitor the patient closely. I would recommend empiric antibiotics, Infectious Disease evaluation. I would also recommend evaluation by Urology. The stone appears to be have passed. I would also recommend an PEDIATRIC DIETICIAN evaluation, possibly as an outpatient, symptomatic treatment for the pain also will be provided. Prognosis guarded because of multiple complex medical issues. Further recommendations to follow. See orders for details. MMODL / IJN: [id number] /
[2025-01-21] MEDS: HEPARIN SODIUM,PORCINE 5,000 UNIT/ML 1 ML VIAL SQ SCH (21:34)
[2025-01-22 07:13] VITALS: RESP 16
[2025-01-22 08:36] LABS: BUN/Creat Ratio 11.83 Ratio (12.00-20.00); Blood Urea Nitrogen 7.1 mg/dL (9.0-27.0); Calcium 8.6 mg/dL (8.7-10.3); Carbon Dioxide 26.8 mmol/L (21.6-31.8); Chloride 106 mmol/L (96-109); Glucose 90 mg/dL (70-110); Potassium 4.2 mmol/L (3.5-5.5); Sodium 142 mmol/L (135-145)
[2025-01-22 08:40] LABS: Basophils # (A) 0.04 X 10*3/uL (0.00-0.10); Basophils % (A) 0.6 %; Eosinophils # (A) 0.18 X 10*3/uL (0.04-0.35); Eosinophils % (A) 2.7 %; HCT 33.5 % (37.2-46.3); HGB 10.4 g/dL (12.0-15.0); Lymphocytes # (A) 2.03 X 10*3/uL (0.90-5.00); Lymphocytes % (A) 30.6 %; MCH 28.5 pg (27.0-32.0); MCV 91.8 FL (80.0-97.0); Mean Platelet Volume 9.9 FL (9.5-12.2); Monocytes # (A) 0.65 X 10*3/uL (0.20-1.00); Monocytes % (A) 9.8 %; NRBC Per 100 WBC 0 X 10*3/uL (0.00-0.01); Neutrophils # (A) 3.71 X 10*3/uL (1.80-7.70); Platelet Count 312 X 10*3/uL (140-440); RBC 3.65 X 10*6/uL (4.10-5.20); RDW 14.1 % (11.5-14.5); WBC 6.63 X 10*3/uL (4.50-10.00)
--- NOTE | 2025-01-22 08:42 | P.PN ---
Subjective This is a pleasant 49 years old female with past medical history of multiple medical problems as below Presents because of flank pain and found to have acute urinary tract infection and acute pyelonephritis. She is currently covered with ceftriaxone and normal saline 75 mL/h Patient still complaining from dysuria and still complaining from right flank and suprapubic pain and tenderness. She still from distress from pain Also she is complaining from headache She has constipation, last bowel movement about 2 days ago She is also complaining from Vital stable, she had low-grade fever on admission 99.9, no more fever Leukocytosis trending down yesterday 16.9 down to 11.5. Hemoglobin with 11.6. Rest of CBC, BMP is unremarkable. Liver enzymes only mildly up. CT of the abdomen and pelvis showing complex lesion on the left side of the uter us 2.3 x 2.6 x 2.2 cm, patient aware about this lesion and states she was trying to get a fitness manager but she has hard time finding one for a while now. She wants to see a fitness manager in-house Also the CAT scan of the abdomen showing mild right hydronephrosis with inflammatory changes around the right kidney and right ureter, she has already been seen by urologist recommended no further intervention just treat with antibiotics Review of systems CONSTITUTIONAL: No fever, no malaise, no fatigue. NEUROLOGICAL: No headaches, no weakness, no numbness. HEMATOLOGICAL: Denies any bleeding or petechiae. GENITOURINARY: Denies any burning micturition, frequency, or urgency. MUSCULOSKELETAL/RHEUMATOLOGICAL: Denies any joint pain, swelling, or any muscle pain. ENDOCRINE: Denies any polyuria or polydipsia. Active Medications Generic Name Dose Route Start Last Admin Trade Name Freq PRN Reason Stop Dose Admin Acetaminophen 650 mg 01/21/25 11:44 01/21/25 11:51 Acetaminophen Tab 325 Mg Tab PO 650 mg Q4HR PRN Administration Fever and/ or Pain Heparin Sodium (Porcine) 5,000 unit 01/21/25 21:00 01/21/25 21:34 Heparin Sodium,Porcine 5,000 Unit/Ml 1 Ml Vial SQ 5,000 unit Q12HR MARY LOU Administration Hydromorphone HCl 1 mg 01/20/25 21:12 01/21/25 23:13 Hydromorphone 1 Mg/Ml 1 Ml Syringe IVP 1 mg Q3HR PRN Administration Severe Pain (Scale 7 to 10) Sodium Chloride 1,000 mls @ 75 mls/hr 01/20/25 18:30 01/21/25 21:34 Saline 0.9% IV 75 mls/hr .[id number] MARY LOU Administration Ceftriaxone Sodium 2 gm/ 50 mls @ 100 mls/hr 01/21/25 13:00 01/21/25 13:18 Sodium Chloride IVPB 100 mls/hr Q24HR MARY LOU Administration Protocol Ketorolac Tromethamine 15 mg 01/20/25 21:12 01/21/25 20:02 Ketorolac 15 Mg/Ml 1 Ml Vial IVP 01/23/25 21:15 15 mg Q6HR PRN Administration Moderate Pain (Scale 4 to 6) Naloxone HCl 0.2 mg 01/20/25 21:12 Naloxone 0.4 Mg/Ml 1 Ml Vial IV Q2M PRN Opioid Reversal Ondansetron HCl 4 mg 01/20/25 21:12 Ondansetron 4 Mg/2 Ml Vial IVP Q8HR PRN Nausea And Vomiting Objective - Vital Signs Vital signs: Vital Signs Temp 98.7 F 01/22/25 06:32 Pulse 78 01/22/25 06:32 Resp 16 01/22/25 06:32 BP 152/80 01/22/25 06:32 Pulse Ox 94 L 01/22/25 06:32 FiO2 Intake & Output 01/21/25 01/22/25 01/22/25 18:59 06:59 18:59 Intake Total 1979 825 Balance 1979 825 Intake: Intake, IV Titration 825 Amount Sodium Chloride 0.9% 1, 825 000 ml @ 75 mls/hr IV . [id number] MARY LOU Rx#:[id number] Oral 1979 Other: Voiding Method Toilet # Voids 5 - Exam GENERAL: The patient is alert and oriented x3, not in any acute distress. Well developed, well nourished. HEENT: Pupils are round and equally reacting to light. EOMI. No scleral icterus. No conjunctival pallor. Normocephalic, atraumatic. No pharyngeal erythema. No thyromegaly. CARDIOVASCULAR: S1 and S2 present. No murmurs, rubs, or gallops. PULMONARY: Chest is clear to auscultation, no wheezing , no crackles. -ABDOMEN: Soft, right flank and suprapubic tenderness , nondistended, normoactive bowel sounds. No palpable organomegaly. MUSCULOSKELETAL: No joint swelling or deformity. EXTREMITIES: No cyanosis, clubbing, or pedal edema. NEUROLOGICAL: Gross neurological examination did not reveal any focal deficits. SKIN: No rashes. no petechiae. - Labs CBC & Chem 7: 01/21/25 04:18 01/21/25 04:18 Assessment and Plan Assessment: Acute pyelonephritis Mild right hydroureteronephrosis Sepsis secondary to above with leukocytosis and mild fever, improving Complex ureteral lesion on the left side 2.3 x 2.6 x 2.2 cm Constipation Mild anemia Plan: Continue ceftriaxone Continue with normal saline Continue with pain management Give laxative Gynecology consult Infectious disease and urology team following closely Labs and medication were reviewed.. Continue same treatment. Continue with symptomatic treatment. Resume home medication. Monitor labs and vitals. DVT and GI prophylaxis. Further recommendations as per clinical course of the patient DVT prophylaxis: Subcutaneous heparin GI Prophylaxis: Pepcid Prognosis is guarded
[2025-01-22] MEDS: FAMOTIDINE 20 MG/2 ML VIAL IV SCH (10:04)
--- NOTE | 2025-01-22 18:22 | P.OBCN ---
History of Present Illness Consult date: 01/22/25 Reason for consult: other Chief complaint: Pelvic pain History of present illness: This is a 49-year-old 5 para 4-0-1-4 that presented to the hospital with complaints of pelvic pain. Patient was diagnosed with possible pyelonephritis. Patient states she went approximately 8 months without a menstrual cycle noting hot flashes, and night sweats. Patient then had a 8-day period approximately 3 months ago that was heavy in nature. 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 Patient states pelvic pain began around 1-2 weeks ago, she was in [place] and noted pelvic cramping. She stated the cramping was similar to the cramping she notes prior to starting her menstrual cycle. She states just prior to admission she noted severe dysuria and diarrhea. 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 5 para 4-0-1-4 4 denies h/o gdm, htn Review of Systems Constitutional: Denies chills, Denies fatigue, Denies fever Ears, nose, mouth and throat: Denies headache Cardiovascular: Denies leg edema Respiratory: Denies dyspnea Gastrointestinal: Reports diarrhea Genitourinary: Reports as per HPI, Denies Past Medical History Past Medical History: Hyperlipidemia, Hypertension History of Any Multi-Drug Resistant Organisms: None Reported Past Surgical History: Orthopedic Surgery, Tubal Ligation Additional Past Surgical History / Comment(s): 11 screws and plate in right ankl e due to tib/fib fracture, oral surgery, top plate dentures and bottom metal plates Past Anesthesia/Blood Transfusion Reactions: Previous Problems w/ Anesthesia Additional Past Anesthesia/Blood Transfusion Reaction / Comm: anesthesia wore off quickly and woke up during surgery Past Psychological History: No Psychological Hx Reported Smoking Status: Vaper Past Alcohol Use History: Occasional Past Drug Use History: Marijuana Medications and Allergies Home Medications Medication Instructions Recorded Confirmed Type DULoxetine HCL [Cymbalta] 20 mg PO DAILY 07/10/24 01/21/25 History Losartan [Cozaar] 50 mg PO BID 07/10/24 01/21/25 History Omeprazole 20 mg PO DAILY 07/10/24 01/21/25 History Rosuvastatin [Crestor] 10 mg PO HS 07/10/24 01/21/25 History carvediloL [Coreg] 3.125 mg PO BID-W/MEALS 07/10/24 01/21/25 History Celecoxib [CeleBREX] 200 mg PO BID PRN 01/21/25 01/21/25 History Multivitamins, Thera [Multivitamin 1 tab PO DAILY 01/21/25 01/21/25 History (formulary)] Allergies Allergy/AdvReac Type Severity Reaction Status Date / Time bee venom protein (honey bee) Allergy Anaphylaxis Verified 01/21/25 10:23 morphine Allergy Rash/Hives Verified 01/21/25 10:23 Exam Osteopathic Statement: *. No significant issues noted on an osteopathic structural exam other than those noted in the History and Physical/Consult. Vital Signs Temp Pulse Resp BP Pulse Ox 01/22/25 12:42 98.5 F 77 16 158/82 96 01/22/25 06:32 98.7 F 78 16 152/80 94 L 01/22/25 02:31 98.3 F 80 18 138/71 96 Intake and Output 01/22/25 01/22/25 01/22/25 06:59 14:59 22:59 Intake Total 730 427 5151 Balance 128 819 9584 Intake: Intake, IV Titration 825 Amount Sodium Chloride 0.9% 1, 825 000 ml @ 75 mls/hr IV . [id number] [facility] Rx#:[id number] Oral 720 1400 Other: # Voids 5 Upon entering the room patient appears comfortable in bed. Exam was not performed as she states she is quite uncomfortable and just received pain meds Results Result Diagrams: 01/22/25 05:08 01/22/25 05:08 Abnormal Lab Results - Last 24 Hours (Table) 01/22/25 01/22/25 Range/Units 05:08 05:08 RBC 3.65 L (4.10-5.20) X 10*6/uL Hgb 10.4 L (12.0-15.0) g/dL Hct 33.5 L (37.2-46.3) % MCHC 31.0 L (32.0-37.0) g/dL BUN 7.1 L (9.0-27.0) mg/dL BUN/Creatinine Ratio 11.83 L (12.00-20.00) Ratio Calcium 8.6 L (8.7-10.3) mg/dL Microbiology - Last 24 Hours (Table) 01/21/25 13:05 Blood Culture - Preliminary Blood Assessment and Plan (1) Pelvic pain Current Visit: Yes Status: Acute Code(s): R10.2 - PELVIC AND PERINEAL PAIN SNOMED Code(s): 47287620 (2) Fibroid, uterine Current Visit: Yes Status: Acute Code(s): D25.9 - LEIOMYOMA OF UTERUS, UNSPECIFIED SNOMED Code(s): 12815250 (3) Leukocytosis Current Visit: Yes Status: Acute Code(s): D72.829 - ELEVATED WHITE BLOOD CELL COUNT, UNSPECIFIED SNOMED Code(s): 132328070 (4) Pyelonephritis Current Visit: Yes Status: Acute Code(s): N12 - TUBULO-INTERSTITIAL NEPHRITIS, NOT SPCF ACUTE OR CHRONIC SNOMED Code(s): 14859571 Plan: Ultrasound reviewed with patient, 2 cm calcified fibroid. Questions were answered. Plan outpatient follow-up for annual/cervical cancer screening. Patient can follow-up at the [facility], [phone] Or [facility] at [phone]
--- NOTE | 2025-01-22 20:10 | P.CONS ---
History of Present Illness - Reason for Consult Consult date: 01/21/25 UTI Requesting physician: Lana Johnson - Chief Complaint Abdominal pain nausea x few days - History of Present Illness Patient is a 49-year-old female with a past medical history sniffing for hypertension hyperlipidemia presenting to the hospital for evaluation of abdominal pain patient pain has been mostly in the pelvic and right lower quadrant area patient described the pain to be sharp moderate in intensity without radiation did have associated nausea but no vomiting denies any diarrhea constipation did have urinary symptoms of burning frequency with this event the patient was evaluated on presentation to the hospital patient did have 1 low- grade fever of 99.9 degrees for right patient did have a mild tachycardia heart rate of 93 patient was not hypotensive or hypoxic she did have a white count of 16.94 with a left shift creatinine 0.69 electrolytes are normal liver isms mildly elevated did have a positive UA culture is currently pending patient did have abdominal pelvis CT with diffuse mild right hydroureteronephrosis with inflammatory changes surrounding the extent of the right ureter and right kidney no renal calculi concerning for pyelonephritis patient also have a transvaginal ultrasound which did shows complex area of calcification and peripheral vascularity seen within the left side of the uterus patient has been started on Rocephin 2 g daily infectious disease was consulted for UTI Review of Systems Positive point and negatives has been mentioned in the HPI, complete review of systems was performed and all other systems are negative Past Medical History Past Medical History: Hyperlipidemia, Hypertension History of Any Multi-Drug Resistant Organisms: None Reported Past Surgical History: Orthopedic Surgery, Tubal Ligation Additional Past Surgical History / Comment(s): 11 screws and plate in right ankle due to tib/fib fracture, oral surgery, top plate dentures and bottom metal plates Past Anesthesia/Blood Transfusion Reactions: Previous Problems w/ Anesthesia Additional Past Anesthesia/Blood Transfusion Reaction / Comm: anesthesia wore off quickly and woke up during surgery Past Psychological History: No Psychological Hx Reported Smoking Status: Vaper Past Alcohol Use History: Occasional Past Drug Use History: Marijuana Medications and Allergies Home Medications Medication Instructions Recorded Confirmed Type DULoxetine HCL [Cymbalta] 20 mg PO DAILY 07/10/24 01/21/25 History Losartan [Cozaar] 50 mg PO BID 07/10/24 01/21/25 History Omeprazole 20 mg PO DAILY 07/10/24 01/21/25 History Rosuvastatin [Crestor] 10 mg PO HS 07/10/24 01/21/25 History carvediloL [Coreg] 3.125 mg PO BID-W/MEALS 07/10/24 01/21/25 History Celecoxib [CeleBREX] 200 mg PO BID PRN 01/21/25 01/21/25 History Multivitamins, Thera [Multivitamin 1 tab PO DAILY 01/21/25 01/21/25 History (formulary)] Allergies Allergy/AdvReac Type Severity Reaction Status Date / Time bee venom protein (honey bee) Allergy Anaphylaxis Verified 01/21/25 10:23 morphine Allergy Rash/Hives Verified 01/21/25 10:23 Physical Exam Vitals: Vital Signs Temp Pulse Pulse Resp BP BP Pulse Ox 01/21/25 12:14 97.8 F 89 16 131/71 94 L 01/21/25 07:12 98.9 F 85 16 135/71 91 L 01/21/25 01:23 98 F 79 19 130/68 100 01/20/25 23:15 98.8 F 01/20/25 22:57 99.9 F H 93 15 150/80 97 01/20/25 22:54 93 15 01/20/25 21:48 98.4 F 90 18 141/76 98 Intake and Output 01/21/25 01/21/25 01/21/25 06:59 14:59 22:59 Intake Total 1080 480 Balance 1080 480 Intake: Oral 1080 480 Other: # Voids 4 GENERAL DESCRIPTION: Middle-age female lying in bed, no distress. No tachypnea or accessory muscle of respiration use. HEENT: Shows Pallor , no scleral icterus. Oral mucous membrane is dry. NECK: Trachea central, no thyromegaly. LUNGS: Unlabored breathing. Clear to auscultation anteriorly. No wheeze or crackle. HEART: S1, S2, regular rate and rhythm. No loud murmur ABDOMEN: Soft, no tenderness EXTREMITIES: No edema of feet. SKIN: No rash, no masses palpable. NEUROLOGICAL: The patient is awake, alert, oriented x3, mood and affect normal. Results CBC & Chem 7: 01/22/25 05:08 01/22/25 05:08 Labs: Abnormal Lab Results - Last 24 Hours (Table) 01/20/25 01/21/25 Range/Units 17:40 04:18 WBC 11.51 H (4.50-10.00) 10*3/uL RBC 4.02 L (4.10-5.20) 10*6/uL Hgb 11.6 L (12.0-15.0) g/dL Hct 36.0 L (37.2-46.3) % Neutrophils # 8.21 H (1.80-7.70) 10*3/uL Monocytes # 1.22 H (0.20-1.00) 10*3/uL Urine Appearance Turbid H (Clear) Urine Protein 2+ H (Negative) Urine Blood Moderate H (Negative) Urine Nitrite Positive H (Negative) Ur Leukocyte Esterase Large H (Negative) Urine RBC >182 H (0-5) /hpf Urine WBC >182 H (0-5) /hpf Urine WBC Clumps Many H (None) /hpf Urine Bacteria Rare H (None) /hpf Urine Mucus Rare H (None) /hpf Assessment and Plan (1) Leukocytosis Current Visit: Yes Status: Acute Code(s): D72.829 - ELEVATED WHITE BLOOD CELL COUNT, UNSPECIFIED SNOMED Code(s): 090245011 (2) Pyelonephritis Current Visit: Yes Status: Acute Code(s): N12 - TUBULO-INTERSTITIAL NEPHRITIS, NOT SPCF ACUTE OR CHRONIC SNOMED Code(s): 81546799 (3) Sepsis Current Visit: Yes Status: Acute Code(s): A41.9 - SEPSIS, UNSPECIFIED ORGANISM SNOMED Code(s): 90460771 Plan: 1patient presented to hospital with sepsis in this patient did have low-grade fever tachycardia elevated white count meeting criteria for SIRS/sepsis source likely urinary in this patient who did have a CT suggestive of mild right hydroureteronephrosis and inflammatory changes suggestive pyelonephritis likely from enteric gram-negative pathogen 2-patient to be treated with Rocephin 2 g daily while waiting for the culture to finalize Question concern answered We will follow on clinical condition and cultures to further adjust medication if needed Thank you for this consultation we will follow the patient along with you Dictation was produced using [employer]ation software. please excuse any grammatical, word or spelling errors.
--- NOTE | 2025-01-22 20:12 | P.PN ---
Subjective Progress Note Date: 01/22/25 Principal diagnosis: Reason for follow-up is complicated UTI Patient is a 49-year-old female with a past medical history sniffing for hypertension hyperlipidemia presenting to the hospital for evaluation of abdominal pain patient pain has been mostly in the pelvic and right lower quadrant area patient did have positive UA CT abdominal pelvis with mild right hydroureteronephrosis and concern for ascending infection/pyelonephritis. On today's evaluation that is 01/22/2025, the patient is afebrile this morning she is breathing comfortably pain to the right sided flank and abdominal area slightly decreased to have some nausea but no vomiting no chest pain shortness of breath or cough or diarrhea. Patient white count normalized to 6.63, creatinine is 0.6 blood and urine cultures currently pending Objective - Vital Signs Vital signs: Vital Signs Temp 97.6 F 01/22/25 19:29 Pulse 76 01/22/25 19:29 Resp 16 01/22/25 19:29 BP 164/90 01/22/25 19:29 Pulse Ox 100 01/22/25 19:29 FiO2 Intake & Output 01/22/25 01/22/25 01/23/25 06:59 18:59 06:59 Intake Total 825 2120 Balance 825 2120 Intake: Intake, IV Titration 825 Amount Sodium Chloride 0.9% 1, 825 000 ml @ 75 mls/hr IV . [id number] [facility] Rx#:[id number] Oral 2120 Other: Voiding Method Toilet Toilet # Voids 5 - Exam GENERAL DESCRIPTION: Middle-age female up in bed in no distress RESPIRATORY SYSTEM: Unlabored breathing , decreased breath sounds at bases HEART: S1 S2 regular rate and rhythm , ABDOMEN: Soft , no tenderness EXTREMITIES: No edema feet - Labs CBC & Chem 7: 01/22/25 05:08 01/22/25 05:08 Labs: Abnormal Lab Results - Last 24 Hours (Table) 01/22/25 01/22/25 Range/Units 05:08 05:08 RBC 3.65 L (4.10-5.20) X 10*6/uL Hgb 10.4 L (12.0-15.0) g/dL Hct 33.5 L (37.2-46.3) % MCHC 31.0 L (32.0-37.0) g/dL BUN 7.1 L (9.0-27.0) mg/dL BUN/Creatinine Ratio 11.83 L (12.00-20.00) Ratio Calcium 8.6 L (8.7-10.3) mg/dL Microbiology - Last 24 Hours (Table) 01/21/25 13:05 Blood Culture - Preliminary Blood Assessment and Plan (1) Leukocytosis Current Visit: Yes Status: Acute Code(s): D72.829 - ELEVATED WHITE BLOOD CELL COUNT, UNSPECIFIED SNOMED Code(s): 430111717 (2) Pyelonephritis Current Visit: Yes Status: Acute Code(s): N12 - TUBULO-INTERSTITIAL NEPHRITIS, NOT SPCF ACUTE OR CHRONIC SNOMED Code(s): 51798690 (3) Sepsis Current Visit: Yes Status: Acute Code(s): A41.9 - SEPSIS, UNSPECIFIED ORGANISM SNOMED Code(s): 35918322 Plan: 1patient presented to hospital with sepsis in this patient did have low-grade fever tachycardia elevated white count meeting criteria for SIRS/sepsis source likely urinary in this patient who did have a CT suggestive of mild right hydroureteronephrosis and inflammatory changes suggestive pyelonephritis likely from enteric gram-negative pathogen 2-patient did have resolution of the fever and the patient white count normalized to continue with Rocephin 2 g daily while waiting for the culture to finalize Question concern answered Dictation was produced using [employer] dictation software. please excuse any grammatical, word or spelling errors. Time with Patient: Less than 30
--- NOTE | 2025-01-23 20:24 | P.PN ---
Subjective This is a pleasant 49 years old female with past medical history of multiple medical problems as below Presents because of flank pain and found to have acute urinary tract infection and acute pyelonephritis. She is currently covered with ceftriaxone and normal saline 75 mL/h Patient still complaining from dysuria and still complaining from right flank and suprapubic pain and tenderness. She still from distress from pain Also she is complaining from headache She has constipation, last bowel movement about 2 days ago She is also complaining from Vital stable, she had low-grade fever on admission 99.9, no more fever Leukocytosis trending down yesterday 16.9 down to 11.5. Hemoglobin with 11.6. Rest of CBC, BMP is unremarkable. Liver enzymes only mildly up. CT of the abdomen and pelvis showing complex lesion on the left side of the uter us 2.3 x 2.6 x 2.2 cm, patient aware about this lesion and states she was trying to get a athletic monitor but she has hard time finding one for a while now. She wants to see a athletic monitor in-house Also the CAT scan of the abdomen showing mild right hydronephrosis with inflammatory changes around the right kidney and right ureter, she has already been seen by urologist recommended no further intervention just treat with antibiotics 01/23 Patient feels much improved She was asked to be discharged home today however she agrees to stay because of urine culture still pending No significant pain no other new complaint. She still have dysuria but is improving. No significant suprapubic or back pain or tenderness Remains on ceftriaxone Urine culture growing gram-negative bacilli Dr. Kent evaluated the patient for her returning lesion and recommended outpatient follow-up, patient agrees with this plan Possible discharge in 24 to 48 hours Objective - Vital Signs Vital signs: Vital Signs Temp 98.4 F 01/23/25 07:35 Pulse 60 01/23/25 07:35 Resp 16 01/23/25 07:35 BP 150/73 01/23/25 07:35 Pulse Ox 99 01/23/25 07:35 FiO2 Intake & Output 01/22/25 01/23/25 01/23/25 18:59 06:59 18:59 Intake Total 2120 480 Balance 2120 480 Intake: Oral 2119 480 Other: Voiding Method Toilet # Voids 5 1 - Exam GENERAL: The patient is alert and oriented x3, not in any acute distress. Well developed, well nourished. HEENT: Pupils are round and equally reacting to light. EOMI. No scleral icterus. No conjunctival pallor. Normocephalic, atraumatic. No pharyngeal erythema. No thyromegaly. CARDIOVASCULAR: S1 and S2 present. No murmurs, rubs, or gallops. PULMONARY: Chest is clear to auscultation, no wheezing , no crackles. -ABDOMEN: Soft, right flank and suprapubic tenderness , nondistended, normoactive bowel sounds. No palpable organomegaly. MUSCULOSKELETAL: No joint swelling or deformity. EXTREMITIES: No cyanosis, clubbing, or pedal edema. NEUROLOGICAL: Gross neurological examination did not reveal any focal deficits. SKIN: No rashes. no petechiae. - Labs CBC & Chem 7: 01/22/25 05:08 01/22/25 05:08 Labs: Microbiology - Last 24 Hours (Table) 01/20/25 17:40 Urine Culture - Preliminary Urine,Voided Gram Neg Bacilli 01/21/25 13:05 Blood Culture - Preliminary Blood Assessment and Plan Assessment: Acute pyelonephritis Mild right hydroureteronephrosis Sepsis secondary to above with leukocytosis and mild fever, improving Complex ureteral lesion on the left side 2.3 x 2.6 x 2.2 cm Constipation Mild anemia Plan: Continue ceftriaxone Continue with normal saline Continue with pain management Give laxative Gynecology consult Infectious disease and urology team following closely Labs and medication were reviewed.. Continue same treatment. Continue with symptomatic treatment. Resume home medication. Monitor labs and vitals. DVT and GI prophylaxis. Further recommendations as per clinical course of the patient DVT prophylaxis: Subcutaneous heparin GI Prophylaxis: Pepcid Prognosis is guarded
--- NOTE | 2025-01-23 20:32 | P.PN ---
Subjective Progress Note Date: 01/23/25 Principal diagnosis: Reason for follow-up is complicated UTI Patient is a 49-year-old female with a past medical history sniffing for hypertension hyperlipidemia presenting to the hospital for evaluation of abdominal pain patient pain has been mostly in the pelvic and right lower quadrant area patient did have positive UA CT abdominal pelvis with mild right hydroureteronephrosis and concern for ascending infection/pyelonephritis. On today's evaluation that is 01/24/2024, patient did have a temperature of 98.4 F this morning and denies having any chills, patient is on room air and breathing comfortably no chest pain or cough, the patient did not have any nausea vomiting abdominal pain or any diarrhea. Patient white normalized to 6.63, creatinine 0.6 culture with gram-negative bacilli blood culture negative Objective - Vital Signs Vital signs: Vital Signs Temp 98.2 F 01/23/25 12:33 Pulse 62 01/23/25 12:33 Resp 16 01/23/25 12:33 BP 154/76 01/23/25 12:33 Pulse Ox 96 01/23/25 12:33 FiO2 Intake & Output 01/22/25 01/23/25 01/23/25 18:59 06:59 18:59 Intake Total 2120 480 Balance 2120 480 Intake: Oral 2120 480 Other: Voiding Method Toilet # Voids 5 1 - Exam GENERAL DESCRIPTION: Middle-age female up in bed in no distress RESPIRATORY SYSTEM: Unlabored breathing , decreased breath sounds at bases HEART: S1 S2 regular rate and rhythm , ABDOMEN: Soft , no tenderness EXTREMITIES: No edema feet - Labs CBC & Chem 7: 01/22/25 05:08 01/22/25 05:08 Labs: Microbiology - Last 24 Hours (Table) 01/20/25 17:40 Urine Culture - Preliminary Urine,Voided Gram Neg Bacilli 01/21/25 13:05 Blood Culture - Preliminary Blood Assessment and Plan (1) Leukocytosis Current Visit: Yes Status: Acute Code(s): D72.829 - ELEVATED WHITE BLOOD CELL COUNT, UNSPECIFIED SNOMED Code(s): 656348359 (2) Pyelonephritis Current Visit: Yes Status: Acute Code(s): N12 - TUBULO-INTERSTITIAL NEPHRIT IS, NOT SPCF ACUTE OR CHRONIC SNOMED Code(s): 65958002 (3) Sepsis Current Visit: Yes Status: Acute Code(s): A41.9 - SEPSIS, UNSPECIFIED ORGANISM SNOMED Code(s): 10371095 Plan: 1patient presented to hospital with sepsis in this patient did have low-grade fever tachycardia elevated white count meeting criteria for SIRS/sepsis source likely urinary in this patient who did have a CT suggestive of mild right hydroureteronephrosis and inflammatory changes suggestive pyelonephritis likely from enteric gram-negative pathogen 2-patient did have resolution of the fever and the patient white count normalized, urine is growing gram-negative blood culture negative 3patient to continue with Rocephin 2 g daily while waiting for the culture to finalize Question concern answered Dictation was produced using [employer] dictation software. please excuse any grammatical, word or spelling errors. Time with Patient: Less than 30
[2025-01-23] MEDS: ONDANSETRON 4 MG/2 ML VIAL IVP PRN (21:31)
[2025-01-24 08:15] VITALS: PULSE 66
[2025-01-24] MEDS: HYDROcodone/APAP 5-325MG 1 EACH TAB PO PRN (11:13)
[2025-01-24 12:43] VITALS: BP 134/74; TEMP 98.1
--- NOTE | 2025-01-24 15:14 | P.PN ---
Subjective Progress Note Date: 01/24/25 Principal diagnosis: Reason for follow-up is complicated UTI Patient is a 49-year-old female with a past medical history sniffing for hypertension hyperlipidemia presenting to the hospital for evaluation of abdominal pain patient pain has been mostly in the pelvic and right lower quadrant area patient did have positive UA CT abdominal pelvis with mild right hydroureteronephrosis and concern for ascending infection/pyelonephritis. On today's evaluation that is 01/24/2025, Patient is afebrile patient is currently on room air and denies having any shortness of breath, the patient denies any chest pain or cough, the patient denies any nausea vomiting, right flank pain lower abdominal pain has decreased no diarrhea feeling better wants to go home. Patient white count normalized to 6.63 blood culture negative urine is growing E. coli that is a sensitive pathogen Objective - Vital Signs Vital signs: Vital Signs Temp 98.1 F 01/24/25 12:41 Pulse 66 01/24/25 12:41 Resp 16 01/24/25 12:41 BP 134/74 01/24/25 12:41 Pulse Ox 99 01/24/25 12:41 FiO2 Intake & Output 01/23/25 01/24/25 01/24/25 18:59 06:59 18:59 Intake Total 2700 1980 240 Balance 2700 1980 240 Intake: Intake, IV Titration 900 Amount Sodium Chloride 0.9% 1, 900 000 ml @ 75 mls/hr IV . [id number] [facility] Rx#:[id number] Oral 2700 1080 240 Other: Voiding Method Toilet # Voids 5 3 # Bowel Movements 1 - Exam GENERAL DESCRIPTION: Middle-age female up in bed in no distress RESPIRATORY SYSTEM: Unlabored breathing , decreased breath sounds at bases HEART: S1 S2 regular rate and rhythm , ABDOMEN: Soft , no tenderness EXTREMITIES: No edema feet - Labs CBC & Chem 7: 01/22/25 05:08 01/22/25 05:08 Labs: Microbiology - Last 24 Hours (Table) 01/20/25 17:40 Urine Culture - Final Urine,Voided Escherichia coli 01/21/25 13:05 Blood Culture - Preliminary Blood Assessment and Plan (1) Leukocytosis Current Visit: Yes Status: Acute Code(s): D72.829 - ELEVATED WHITE BLOOD CELL COUNT, UNSPECIFIED SNOMED Code(s): 808773223 (2) Pyelonephritis Current Visit: Yes Status: Acute Code(s): N12 - TUBULO-INTERSTITIAL NEPHRITIS, NOT SPCF ACUTE OR CHRONIC SNOMED Code(s): 98475869 (3) Sepsis Current Visit: Yes Status: Acute Code(s): A41.9 - SEPSIS, UNSPECIFIED ORGANISM SNOMED Code(s): 52528429 Plan: 1patient presented to hospital with sepsis in this patient did have low-grade fever tachycardia elevated white count meeting criteria for SIRS/sepsis source likely urinary in this patient who did have a CT suggestive of mild right hydroureteronephrosis and inflammatory changes suggestive pyelonephritis likely from enteric gram-negative pathogen 2-patient did have resolution of the fever and the patient white count normalized, urine is growing E. coli that is a sensitive pathogen 3patient had shown clinical improvement with Rocephin 2 g daily will finish therapy with oral Ceftin prescription sent to the pharmacy Question concern answered Dictation was produced using [employer] dictation software. please excuse any grammatical, word or spelling errors. Time with Patient: Less than 30
== END 2025-01-24 15:57 | disposition home health service (06) | DRG 720 ==
LOC: EC 15:32 → 5NMEDONC 21:16 → OBSVTOIN 21:17 → 5NMEDONC 22:14
PROVIDERS: ADMIT Hospitalist; ATTEND Hospitalist
DX: A41.9 Sepsis, unspecified organism (principal); D25.9 Leiomyoma of uterus, unspecified; D64.9 Anemia, unspecified; N13.6 Pyonephrosis; K59.00 Constipation, unspecified; E78.5 Hyperlipidemia, unspecified; I10 Essential (primary) hypertension; Z79.1 Long term (current) use of non-steroidal anti-inflammatories (NSAID); Z79.899 Other long term (current) drug therapy; Z87.442 Personal history of urinary calculi; Z88.5 Allergy status to narcotic agent; Z91.030 Bee allergy status; R89.6 Abnormal cytological findings in specimens from other organs, systems and tissues; Z98.51 Tubal ligation status
CPT/HCPCS: 36415; 74176; 76830; 80048; 80053; 81001; 82150; 83690; 84702; 85025; 87040; 87077; 87086; 87186; 93976; 96361; 96374; 96375; 99285

== ENCOUNTER → 2025-02-15 | Outpatient (CLI) | payer OTHER ==
--- NOTE | 2025-02-15 11:09 | MM ---
Reason for Exam: Screening (asymptomatic). Patient History: Menarche at age 13. First Full-Term at age 19. Maternal aunt had breast cancer at or over age 50. Risk Values: Laura 5 year model risk: 0.7%. NCI Lifetime model risk: 6.7%. Prior Study Comparison: No prior studies available for comparison. Tissue Density: The breasts are heterogeneously dense, which may obscure small masses. Findings: Analyzed By CAD. Benign-appearing vascular calcification left axilla. There is no suspicious group of microcalcifications or suspicious mass in either breast. Benign-appearing bilateral axillary lymph nodes. Overall Assessment: Benign, BI-RAD 2 Management: Screening Mammogram of both breasts in 1 year. . Patient should continue monthly self-breast exams. A clinical breast exam by your physician is recommended on an annual basis. This exam should not preclude additional follow-up of suspicious palpable abnormalities. Note on Laura scores and lifetime risk: 1. A Laura score greater than 3% is considered moderate risk. If this is the case, consider specialist referral to assess eligibility for a risk reducing agent. 2. If overall lifetime risk for the development of breast cancer is 20% or higher, the patient may qualify for future screening with alternating mammogram and breast MRI. [facility], , 02/15/2025 11:06 AM. Electronically signed and approved by: Ant Mota M.D.
== END | disposition home or self-care (01) ==
LOC: RADMAMWWP 10:17
PROVIDERS: ATTEND General Practice
DX: Z12.31 Encounter for screening mammogram for malignant neoplasm of breast (principal); R92.333 Mammographic heterogeneous density, bilateral breasts; R92.1 Mammographic calcification found on diagnostic imaging of breast; Z80.3 Family history of malignant neoplasm of breast
CPT/HCPCS: 77067

== ENCOUNTER → 2025-03-10 | Outpatient (CLI) | payer OTHER ==
--- NOTE | 2025-03-12 14:07 | MR ---
EXAMINATION TYPE: MR pelvis wo/w con DATE OF EXAM: 03/10/2025 COMPARISON: Transvaginal ultrasound 01/20/2025, CT abdomen and pelvis 01/20/2025 CLINICAL INDICATION:Female, 49 years old with history of M45.8 OTHER SPECIFIED NONINFLAMMATORY DISORD ERS OF; [facility], TECHNIQUE: Triplane multisequence imaging was performed of the pelvis. Then the patient was given c ontrast/gadolinium, 8 cc of Gadobutrol and multiple post contrast sequences where obtained. FINDINGS: Reproductive: Vagina: Unremarkable. Uterus: The uterus is anteverted in position. Uterus measures 9.4 x 5.9 x 4.9 cm. The endometrium and junctional zone are within normal limits. Multiple nabothian cysts are seen in the cervix. Left po sterior uterine body intramural T2 hypointense/T1 isointense well-circumscribed lobulated lesion. [place] sures 1.8 x 2.0 x 2.2 cm in AP, TV, CC dimensions. Demonstrates decreased enhancement to the surround ing parenchyma. Demonstrated coarse calcifications in prior CT. Ovaries: Follicular changes are noted to the ovaries. Dominant nonenhancing left follicular cyst xin uring 2.4 cm. Bladder: Unremarkable. Bowel: Unremarkable as visualized. Peritoneum: No free fluid. No evidence of adenopathy. Vasculature: Unremarkable. Abdominal wall/soft tissues: Unremarkable. Musculoskeletal: Bone marrow signal is within normal signal intensity. IMPRESSION: Left posterior uterine 2.2 cm fibroid corresponding to prior ultrasound and CT. [facility], , 03/12/2025 2:04 PM
== END | disposition home or self-care (01) ==
LOC: RADMRIMAIN 03-09 08:24
PROVIDERS: ATTEND General Practice
DX: D25.9 Leiomyoma of uterus, unspecified (principal); N85.8 Other specified noninflammatory disorders of uterus
CPT/HCPCS: 72197; A9585